=== PATIENT | female | born 1975 | race Caucasian/White ===

== ENCOUNTER 2016-09-23 10:44 | Emergency (ER) | payer OTHER ==
[~2016-09-23] VITALS: Ht 160 cm; Wt 95.3 kg
[~2016-09-23 10:44] MED LIST: ADVAIR 100/501 E1 INH; ADVAIR 250/501 EA INH; ALBUTEROL0.09 MG/A2 IH; ALBUTEROL0.09 MG/AC PO; AMOXICILLIN500 MG PO; ANAPROX DS550 MG PO; ATARAX25 MG PO; ATIVAN1 MG PO; AUGMENTIN 875 M1 TAB PO; AUGMENTIN 875875 MG PO; BACTRIM DS 8001 TA1 PO; BACTROBAN OINT22 GM PO; CLEOCIN150 MG PO; DAYPRO600 M1 PO; DIFLUCAN150 MG PO; FLAGYL500 MG PO; FLEXERIL5 MG PO; FLONASE 0.05% 121 EA NAS; FLONASE ALLERG9.9 ML NAS; FLONASE0.05 MG/AC NAS; LIDEX 0.05% CRE15 GM T; LOMOTIL 0.025 M1 TA1 PO; MEDROL DOSEPAK4 MG PO; MOTRIN800 MG PO; NAPROSYN500 MG PO; NKHM; PEN-VK500 MG PO; PHENERGAN25 M1 PO; PREDNICOT20 MG PO; PREDNISONE10 MG PO; PREDNISONE20 MG PO; PREDNISONE5 MG PO; PRILOSEC20 M1 PO; PRILOSEC20 MG PO; PROAIR RESPICL90 MCG INH; PROVENTIL0.09 MG/AC IH; PROZAC10 M1 PO; PULMICORT INH200 MCG INH; TESSALON PERLE100 M1 PO; TORADOL10 MG PO; TRAMADOL HCL50 MG PO; ULTRAM50 MG PO; VERAMYST27.5 MCG/A NAS; VIBRAMYCIN100 MG PO; VICODIN 5/500 505 MG PO; XOPENEX0.63 MG INH; ZANTAC 150150 MG PO; ZITHROMAX Z PA250 MG PO; ZOFRAN ODT4 MG SL; ZOFRAN4 MG PO; ZYRTEC10 M3 PO; Zofran4 MG PO
[2016-09-23] MEDS ORDERED: PREDNISONE10 MG PO (11:17)
== END 2016-09-23 11:22 | disposition home or self-care (01) ==
LOC: ED 10:44
DX: L25.9 Unspecified contact dermatitis, unspecified cause (principal); Z79.899 Other long term (current) drug therapy

== ENCOUNTER 2016-10-17 17:00 | Emergency (ER) | payer OTHER ==
[~2016-10-17] VITALS: Ht 160 cm; Wt 95.3 kg
[2016-10-17 17:39] LABS: BASO % 0.1 % (0.0-1.0); EOS % 0.5 % (1.0-4.0); HEMATOCRIT 39.7 % (37.0-47.0); LYMPH # 1.6 10*3/uL (1.3-4.4); LYMPH % 20.4 % (27.0-41.0); MEAN CELL VOLUME 83.8 fl (81.0-99.0); MEAN CORPUSCULAR HGB 27.4 pg (27.0-31.0); MEAN CORPUSCULAR HGB CONC 32.7 g/dl (33.0-37.0); MEAN PLATELET VOLUME 10.5 fl (9.6-12.3); MONO # 0.4 10*3/uL (0.1-1.0); MONO % 4.5 % (3.0-9.0); NEUT # 5.7 10*3/uL (2.3-7.9); NEUT % 74.4 % (47.0-73.0); PLATELET COUNT AUTOMATED 224 10*3/uL (130-400); RED BLOOD COUNT 4.74 10*6/uL (4.10-5.10); RED CELL DISTRI WIDTH 14.2 % (0-14.5); WHITE BLOOD COUNT 7.7 10*3/uL (4.8-10.8)
[2016-10-17 18:00] LABS: ALBUMIN 3.7 gm/dl (3.1-4.5); ALKALINE PHOSPHATASE 132 U/L (45-117); BILIRUBIN, TOTAL 0.3 mg/dl (0.2-1.0); BUN 12 mg/dl (7-24); CARBON DIOXIDE 32 mmol/L (21-32); CHLORIDE 103 mmol/L (98-107); EST GLOM FILT AFRICAN AMERICAN > 60 ml/min; GLUCOSE 99 mg/dL (65-99); MAGNESIUM 2.1 mg/dL (1.5-2.1); POTASSIUM 4.3 mmol/L (3.5-5.1); SGOT/AST 21 IU/L (3-35); SGPT/ALT 35 U/L (12-78); SODIUM 138 mmol/L (136-145); TOTAL PROTEIN 7.3 gm/dL (6.4-8.2)
[2016-10-17] MEDS ORDERED: NAPROSYN500 MG PO (18:34)
[2016-10-17] MEDS ORDERED: CYCLOBENZAPRINE10 MG PO (18:34)
== END 2016-10-17 18:52 | disposition home or self-care (01) ==
LOC: ED 17:00
PROVIDERS: Nurse Practitioner Family
DX: M62.838 Other muscle spasm (principal); Z79.899 Other long term (current) drug therapy

== ENCOUNTER 2017-02-03 20:02 | Emergency (ER) | payer OTHER ==
[~2017-02-03] VITALS: Ht 160 cm; Wt 97.5 kg
[~2017-02-03 20:02] MED LIST changes: +CYCLOBENZAPRINE10 MG PO
[2017-02-03] MEDS ORDERED: ATROVENT HFA12.9 GM INH (20:42)
[2017-02-03] MEDS ORDERED: ZITHROMAX250 MG PO (20:42)
[2017-02-03] MEDS ORDERED: PREDNISONE20 M1 PO (20:42)
== END 2017-02-03 23:13 | disposition home or self-care (01) ==
LOC: ED 20:02
DX: J20.9 Acute bronchitis, unspecified (principal); Z90.49 Acquired absence of other specified parts of digestive tract; Z98.51 Tubal ligation status; Z79.899 Other long term (current) drug therapy

== ENCOUNTER 2017-02-09 10:56 | Emergency (ER) | payer OTHER ==
[~2017-02-09] VITALS: Ht 160 cm; Wt 95.3 kg
[~2017-02-09 10:56] MED LIST changes: +ATROVENT HFA12.9 GM INH; +PREDNISONE20 M1 PO; +ZITHROMAX250 MG PO
[2017-02-09] MEDS ORDERED: BENADRYL ALLERG25 M5 PO (12:23)
[2017-02-09] MEDS ORDERED: ZANTAC 150150 MG PO (12:23)
[2017-02-09] MEDS ORDERED: PREDNISONE10 M1 PO (12:23)
== END 2017-02-09 12:29 | disposition home or self-care (01) ==
LOC: ED 10:56
DX: T78.40XA Allergy, unspecified, initial encounter (principal); Z79.899 Other long term (current) drug therapy; X58.XXXA Exposure to other specified factors, initial encounter

== ENCOUNTER → 2017-07-06 | Outpatient (CLI) | payer OTHER ==
[~2017-07-06] MED LIST changes: +BENADRYL ALLERG25 M5 PO; +BREO ELLIPTA 11 EACH INH; +NEXIUM PO; +PREDNISONE10 M1 PO; +ROBITUSSIN DM 105 ML PO; +SINGULAIR10 M1 PO; +ZYRTEC10 MG PO
--- NOTE | ~2017-07-06 | ST ---
[place], [place] EXERCISE STRESS TEST REPORT NAME: ARELY PULLIAM UNIT #: [id number] ROOM: DOCTOR: OPAL BERNARD MD BIRTHDATE: [birth year] DOS: EXERCISE STRESS TEST REASON FOR STRESS TEST: Atypical precordial chest pain. PROCEDURE IN DETAIL: The patient exercised utilizing a full Da protocol for 7 minutes 7 seconds and stopped for fatigue and dyspnea at a heart rate of 155, which represented 86% of her maximum predicted heart rate at a workload of 10.0 METs. She had some chest heaviness during exercise. Her resting electrocardiogram was normal. With exercise, she had 1.[address] segment depression in the inferior and lateral leads. Her resting blood pressure of 110/70 jasbir to 224/98. The Handy treadmill score was 0.6, consistent with a moderate risk for future cardiac events. IMPRESSION: 1. Limited exercise capacity for age. 2. Hypertensive blood pressure response to exercise. 3. Equivocal electrocardiographic response to exercise. 4. Handy treadmill score is 0.6, consistent with intermediate risk for future cardiac events. OPLA BERNARD MD CM:STRESS:EXERCISE STRESS TEST REPORT [id number] OPAL BERNARD MD
== END | disposition home or self-care (01) ==
LOC: CARD 01:39
DX: R07.89 Other chest pain (principal)

== ENCOUNTER 2017-07-09 17:18 | Emergency (ER) | payer OTHER ==
[~2017-07-09] VITALS: Ht 160 cm; Wt 99.8 kg
[~2017-07-09 17:18] MED LIST changes: -ROBITUSSIN DM 105 ML PO
[2017-07-09 17:47] LABS: BASO % 0.6 % (0.0-1.0); EOS % 0.8 % (1.0-4.0); HEMATOCRIT 39.6 % (37.0-47.0); HEMOGLOBIN 13.1 g/dl (12.0-16.0); LYMPH # 1.2 10*3/uL (1.3-4.4); MEAN CELL VOLUME 83.7 fl (81.0-99.0); MEAN CORPUSCULAR HGB 27.7 pg (27.0-31.0); MEAN CORPUSCULAR HGB CONC 33.1 g/dl (33.0-37.0); MEAN PLATELET VOLUME 10.7 fl (9.6-12.3); MONO # 0.5 10*3/uL (0.1-1.0); MONO % 9.3 % (3.0-9.0); NEUT # 3.4 10*3/uL (2.3-7.9); NEUT % 65.3 % (47.0-73.0); PLATELET COUNT AUTOMATED 224 10*3/uL (130-400); RED BLOOD COUNT 4.73 10*6/uL (4.10-5.10); RED CELL DISTRI WIDTH 14.2 % (0-14.5); WHITE BLOOD COUNT 5.2 10*3/uL (4.8-10.8)
[2017-07-09 18:04] LABS: ALBUMIN 3.5 gm/dl (3.1-4.5); ALKALINE PHOSPHATASE 124 U/L (45-117); BUN 13 mg/dl (7-24); CHLORIDE 106 mmol/L (98-107); CREATININE 0.71 mg/dL (0.55-1.02); POTASSIUM 4.2 mmol/L (3.5-5.1); SGOT/AST 20 IU/L (3-35); SGPT/ALT 27 U/L (12-78); SODIUM 140 mmol/L (136-145); TOTAL PROTEIN 7.2 gm/dL (6.4-8.2)
[2017-07-09 18:05] LABS: TROPONIN I < 0.015 ng/ml (<0.045)
[2017-07-09] MEDS ORDERED: PREDNISONE20 M1 PO (19:13)
[2017-07-09] MEDS ORDERED: ROBITUSSIN DM 105 ML PO (19:13)
== END 2017-07-09 19:19 | disposition home or self-care (01) ==
LOC: ED 17:19
PROVIDERS: Nurse Practitioner Family
DX: J45.901 Unspecified asthma with (acute) exacerbation (principal); Z98.51 Tubal ligation status; Z90.49 Acquired absence of other specified parts of digestive tract; Z79.899 Other long term (current) drug therapy

== ENCOUNTER → 2017-08-26 | Outpatient (CLI) | payer OTHER ==
[~2017-08-26] MED LIST changes: +ROBITUSSIN DM 105 ML PO
--- NOTE | ~2017-08-26 | ST ---
[place], [place] EXERCISE STRESS TEST REPORT NAME: ARELY PULLIAM UNIT #: [id number] ROOM: DOCTOR: YAHIR CHAVEZ MD BIRTHDATE: [birth year] DOS: 08/26/2017 EXERCISE NUCLEAR STRESS TEST. ATTENDING PHYSICIAN: Dr. Yahir Chavez PROCEDURE: The patient walked for 7 minutes and 40 seconds on the Da protocol and stopped because of dyspnea and fatigue. She achieved a maximum heart rate of 154, which has represented 86% of maximum predicted heart rate at a workload of 10 mets. There were no changes on the exercise ECG. The patient experienced no chest pain. The Handy treadmill score was 8 consistent with intermediate risk of cardiovascular events. There was an appropriate blood pressure and heart rate response during exercise and recovery. IMPRESSION: The patient has average functional capacity. Isotope was injected 1 minute prior to the completion of exercise. Please see the separate imaging report for further details of the stress test results. Yahir Chavez MD CM:STRESS:EXERCISE STRESS TEST REPORT [id number] YAHIR CHAVEZ MD
== END | disposition home or self-care (01) ==
LOC: CARD 00:32
DX: R07.9 Chest pain, unspecified (principal)

== ENCOUNTER 2017-10-06 20:52 | Emergency (ER) | payer OTHER ==
[~2017-10-06] VITALS: Ht 160 cm; Wt 99.8 kg
[2017-10-06 21:21] LABS: BASO % 0.4 % (0.0-1.0); EOS # 0.1 10*3/uL (0.0-0.4); EOS % 0.9 % (1.0-4.0); HEMATOCRIT 40.1 % (37.0-47.0); HEMOGLOBIN 13.2 g/dl (12.0-16.0); LYMPH # 2.6 10*3/uL (1.3-4.4); LYMPH % 27.5 % (27.0-41.0); MEAN CELL VOLUME 83.9 fl (81.0-99.0); MEAN CORPUSCULAR HGB 27.6 pg (27.0-31.0); MEAN CORPUSCULAR HGB CONC 32.9 g/dl (33.0-37.0); MEAN PLATELET VOLUME 10.9 fl (9.6-12.3); MONO # 0.5 10*3/uL (0.1-1.0); MONO % 5.7 % (3.0-9.0); NEUT # 6.1 10*3/uL (2.3-7.9); NEUT % 65.3 % (47.0-73.0); PLATELET COUNT AUTOMATED 239 10*3/uL (130-400); RED BLOOD COUNT 4.78 10*6/uL (4.10-5.10); WHITE BLOOD COUNT 9.4 10*3/uL (4.8-10.8)
[2017-10-06 21:32] LABS: ACT PARTIAL THROMBO TIME 25.4 SECONDS (20.8-31.5)
[2017-10-06 21:40] LABS: ALBUMIN 3.6 gm/dl (3.1-4.5); ALKALINE PHOSPHATASE 134 U/L (45-117); BUN 8 mg/dl (7-24); CHLORIDE 106 mmol/L (98-107); CREATININE 0.87 mg/dL (0.55-1.02); POTASSIUM 3.3 mmol/L (3.5-5.1); SGOT/AST 17 IU/L (3-35); SGPT/ALT 31 U/L (12-78); SODIUM 141 mmol/L (136-145); TOTAL PROTEIN 7.2 gm/dL (6.4-8.2)
[2017-10-06 21:45] LABS: TROPONIN I < 0.015 ng/ml (<0.045)
[2017-10-06] MEDS ORDERED: NAPROSYN500 MG PO (22:07)
== END 2017-10-06 22:13 | disposition home or self-care (01) ==
LOC: ED 20:52
PROVIDERS: Student in an Organized Health Care Education/Training Program
DX: R07.89 Other chest pain (principal); R42 Dizziness and giddiness; R05 Cough; R11.10 Vomiting, unspecified; K21.9 Gastro-esophageal reflux disease without esophagitis; J45.909 Unspecified asthma, uncomplicated; Z79.899 Other long term (current) drug therapy

== ENCOUNTER 2018-01-12 16:38 | Emergency (ER) | payer OTHER ==
[~2018-01-12] VITALS: Wt 104.3 kg
[2018-01-12 18:16] LABS: BILIRUBIN NEGATIVE (NEGATIVE); BLOOD TRACE-INTACT (NEGATIVE); CLARITY CLEAR (CLEAR); COLOR YELLOW (YELLOW); GLUCOSE NEGATIVE (NEGATIVE); KETONE NEGATIVE (NEGATIVE); LEUKO ESTERASE NEGATIVE (NEGATIVE); NITRITE NEGATIVE (NEGATIVE); UROBILINOGEN 0.2 E.U./dl (0.2-1.0)
[2018-01-12 18:28] LABS: BACTERIA 1+; EPITHELIAL CELLS 16-20; RBC 0-2 rbc/hpf (0-2)
[2018-01-12 19:54] LABS: BASO % 0.3 % (0.0-1.0); EOS # 0.1 10*3/uL (0.0-0.4); EOS % 0.8 % (1.0-4.0); HEMATOCRIT 38.5 % (37.0-47.0); HEMOGLOBIN 12.5 g/dl (12.0-16.0); LYMPH # 2.3 10*3/uL (1.3-4.4); MEAN CORPUSCULAR HGB 27.6 pg (27.0-31.0); MEAN CORPUSCULAR HGB CONC 32.5 g/dl (33.0-37.0); MEAN PLATELET VOLUME 10.9 fl (9.6-12.3); MONO # 0.5 10*3/uL (0.1-1.0); MONO % 5.9 % (3.0-9.0); NEUT # 6.2 10*3/uL (2.3-7.9); NEUT % 67.8 % (47.0-73.0); PLATELET COUNT AUTOMATED 255 10*3/uL (130-400); RED BLOOD COUNT 4.53 10*6/uL (4.10-5.10); WHITE BLOOD COUNT 9.1 10*3/uL (4.8-10.8)
[2018-01-12] MEDS ORDERED: PREDNISONE10 MG PO (20:04)
[2018-01-12] MEDS ORDERED: CYCLOBENZAPRINE5 M3 PO (20:04)
[2018-01-12] MEDS ORDERED: Motrin,Rufen800 MG PO (20:04)
[2018-01-12 20:08] LABS: ALBUMIN 3.5 gm/dl (3.1-4.5); ALKALINE PHOSPHATASE 115 U/L (45-117); BUN 9 mg/dl (7-24); CHLORIDE 108 mmol/L (98-107); POTASSIUM 3.3 mmol/L (3.5-5.1); SGOT/AST 16 IU/L (3-35); SGPT/ALT 30 U/L (12-78); SODIUM 143 mmol/L (136-145); TOTAL PROTEIN 6.9 gm/dL (6.4-8.2)
== END 2018-01-12 21:03 | disposition home or self-care (01) ==
LOC: ED 16:38
PROVIDERS: Nurse Practitioner
DX: M54.5 Low back pain (principal); Z98.51 Tubal ligation status; Z90.49 Acquired absence of other specified parts of digestive tract; Z79.899 Other long term (current) drug therapy

== ENCOUNTER → 2018-03-03 | Outpatient (CLI) | payer SELFPAY ==
[~2018-03-03] MED LIST changes: +AVPAK AZITHROM250 MG PO; +CLARITIN10 MG PO; +CYCLOBENZAPRINE5 M3 PO; +MUCINEX1200 M1 PO; +Motrin,Rufen800 MG PO; +PREDNISONE50 MG PO
== END | disposition home or self-care (01) ==
LOC: RESCLI 13:23
DX: K21.9 Gastro-esophageal reflux disease without esophagitis (principal); J30.89 Other allergic rhinitis; R68.89 Other general symptoms and signs; B34.9 Viral infection, unspecified; E66.9 Obesity, unspecified; J45.30 Mild persistent asthma, uncomplicated; Z79.899 Other long term (current) drug therapy; Z88.8 Allergy status to other drugs, medicaments and biological substances

== ENCOUNTER 2018-03-05 10:54 | Emergency (ER) | payer SELFPAY ==
[~2018-03-05] VITALS: Ht 160 cm; Wt 102.1 kg
[~2018-03-05 10:54] MED LIST changes: -AVPAK AZITHROM250 MG PO; -CLARITIN10 MG PO; -MUCINEX1200 M1 PO; -PREDNISONE50 MG PO
[2018-03-05] MEDS ORDERED: CLARITIN10 MG PO (11:09)
[2018-03-05 11:53] LABS: BASO % 0.3 % (0.0-1.0); EOS # 0.1 10*3/uL (0.0-0.4); EOS % 0.8 % (1.0-4.0); HEMATOCRIT 40.1 % (37.0-47.0); HEMOGLOBIN 13.2 g/dl (12.0-16.0); LYMPH # 1.7 10*3/uL (1.3-4.4); LYMPH % 25.2 % (27.0-41.0); MEAN CELL VOLUME 83.2 fl (81.0-99.0); MEAN CORPUSCULAR HGB 27.4 pg (27.0-31.0); MEAN CORPUSCULAR HGB CONC 32.9 g/dl (33.0-37.0); MEAN PLATELET VOLUME 10.6 fl (9.6-12.3); MONO # 0.3 10*3/uL (0.1-1.0); MONO % 5.2 % (3.0-9.0); NEUT # 4.5 10*3/uL (2.3-7.9); NEUT % 68.3 % (47.0-73.0); PLATELET COUNT AUTOMATED 248 10*3/uL (130-400); RED BLOOD COUNT 4.82 10*6/uL (4.10-5.10); RED CELL DISTRI WIDTH 13.8 % (0-14.5); WHITE BLOOD COUNT 6.6 10*3/uL (4.8-10.8)
[2018-03-05 12:03] LABS: ACT PARTIAL THROMBO TIME 25.5 SECONDS (20.8-31.5)
[2018-03-05 12:10] LABS: ALBUMIN 3.4 gm/dl (3.1-4.5); ALKALINE PHOSPHATASE 125 U/L (45-117); BUN 10 mg/dl (7-24); CHLORIDE 109 mmol/L (98-107); CREATININE 0.76 mg/dL (0.55-1.02); POTASSIUM 3.8 mmol/L (3.5-5.1); SGOT/AST 13 IU/L (3-35); SGPT/ALT 26 U/L (12-78); SODIUM 141 mmol/L (136-145); TOTAL PROTEIN 6.9 gm/dL (6.4-8.2)
[2018-03-05] MEDS ORDERED: AVPAK AZITHROM250 MG PO (13:01)
[2018-03-05] MEDS ORDERED: PREDNISONE50 MG PO (13:01)
[2018-03-05] MEDS ORDERED: MUCINEX1200 M1 PO (13:01)
== END 2018-03-05 13:06 | disposition home or self-care (01) ==
LOC: ED 10:54
PROVIDERS: Nurse Practitioner Family
DX: J45.901 Unspecified asthma with (acute) exacerbation (principal); J06.9 Acute upper respiratory infection, unspecified; Z79.899 Other long term (current) drug therapy

== ENCOUNTER → 2018-04-06 | Outpatient (CLI) | payer SELFPAY ==
[~2018-04-06] MED LIST changes: +AVPAK AZITHROM250 MG PO; +CLARITIN10 MG PO; +MUCINEX1200 M1 PO; +PREDNISONE50 MG PO
== END | disposition home or self-care (01) ==
LOC: RESCLI 10:11
PROVIDERS: Student in an Organized Health Care Education/Training Program
DX: K21.9 Gastro-esophageal reflux disease without esophagitis (principal); R68.89 Other general symptoms and signs; J02.9 Acute pharyngitis, unspecified; J32.9 Chronic sinusitis, unspecified; J45.30 Mild persistent asthma, uncomplicated; E66.9 Obesity, unspecified; R05 Cough; Z79.899 Other long term (current) drug therapy; Z88.8 Allergy status to other drugs, medicaments and biological substances

== ENCOUNTER 2018-08-19 14:56 | Inpatient (IN) | payer SELFPAY ==
[~2018-08-19] VITALS: Ht 160 cm; Wt 103.1 kg
--- NOTE | ~2018-08-19 | EKG ---
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
--- NOTE | ~2018-08-19 | EKG ---
[place], [place] ELECTROCARDIOGRAM REPORT NAME: ARELY PULLIAM UNIT #: [id number] ROOM: 402 DOCTOR: ANT DRAFT REPORT BIRTHDATE: [address] 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[place] : 1975 Requested By: ADOLFO GARLAND Order Number: [id number] Reading MD: Janey Chavez MD Measurements Intervals [place] Rate: 109 P: 54 DC: 157 QRS: 32 QRSD: 94 T: 14 QT: 367 QTc: 495 Interpretive Statements Sinus tachycardia Minimal ST depression, lateral leads Borderline prolonged QT interval Baseline wander in lead(s) V4 Compared to ECG 08/19/2018 18:00:47 ST (T wave) deviation now present T-wave abnormality no longer present Electronically Signed On 08-20-2018 15:56:46 PST by Janey Chavez MD CM:EKGRPT:ELECTROCARDIOGRAM REPORT [id number] ADOLFO CAIN DRAFT REPORT ADOLFO GARLAND M.D.
--- NOTE | ~2018-08-19 | EKG ---
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
--- NOTE | ~2018-08-19 | EKG ---
[place], [place] ELECTROCARDIOGRAM REPORT NAME: ARELY PULLIAM UNIT #: [id number] ROOM: 402 DOCTOR: ANT DRAFT REPORT BIRTHDATE: [birth year] [facility] Test Date: 2018-08-19 Test Time: 14:57:26 Pat Name: ARELY PULLIAM Department: Room: 402 Gender: F [employer] Lead: : 1975 Requested By: ADOLFO GARLAND Order Number: [id number] Reading MD: Janey Chavez MD Measurements Intervals [place] Rate: 99 P: 26 VT: 154 QRS: 30 QRSD: 95 T: 10 QT: 360 QTc: 462 Interpretive Statements Sinus rhythm RSR' in V1 or V2, right VCD or RVH Borderline T abnormalities, anterior leads Baseline wander in lead(s) V1,V2 Electronically Signed On 08-19-2018 15:35:43 PST by Janey Chavez MD CM:EKGRPT:ELECTROCARDIOGRAM REPORT [id number] ADOLFO CAIN DRAFT REPORT ADOLFO GARLAND M.D.
[2018-08-19 14:57] VITALS: BP 144/96
[2018-08-19 15:47] LABS: BASO % 0.3 % (0.0-1.0); EOS # 0.1 10*3/uL (0.0-0.4); EOS % 0.6 % (1.0-4.0); HEMATOCRIT 37.9 % (37.0-47.0); HEMOGLOBIN 12.4 g/dl (12.0-16.0); LYMPH % 25.7 % (27.0-41.0); MEAN CELL VOLUME 83.3 fl (81.0-99.0); MEAN CORPUSCULAR HGB 27.3 pg (27.0-31.0); MEAN CORPUSCULAR HGB CONC 32.7 g/dl (33.0-37.0); MEAN PLATELET VOLUME 10.4 fl (9.6-12.3); MONO # 0.4 10*3/uL (0.1-1.0); MONO % 5.4 % (3.0-9.0); NEUT # 5.3 10*3/uL (2.3-7.9); NEUT % 67.7 % (47.0-73.0); PLATELET COUNT AUTOMATED 237 10*3/uL (130-400); RED BLOOD COUNT 4.55 10*6/uL (4.10-5.10); RED CELL DISTRI WIDTH 14.6 % (0-14.5); WHITE BLOOD COUNT 7.8 10*3/uL (4.8-10.8)
[2018-08-19 15:58] LABS: ACT PARTIAL THROMBO TIME 25.8 SECONDS (20.8-31.5)
[2018-08-19 16:18] LABS: ALBUMIN 3.4 gm/dl (3.1-4.5); ALKALINE PHOSPHATASE 142 U/L (45-117); BUN 11 mg/dl (7-24); CHLORIDE 106 mmol/L (98-107); CREATININE 0.82 mg/dL (0.55-1.02); POTASSIUM 3.4 mmol/L (3.5-5.1); SGOT/AST 15 IU/L (3-35); SGPT/ALT 29 U/L (12-78); SODIUM 141 mmol/L (136-145)
[2018-08-19 16:23] LABS: TROPONIN I < 0.015 ng/ml (<0.045)
[2018-08-19 16:38] VITALS: BP 144/84
[2018-08-19 17:51] VITALS: BP 136/75
[2018-08-19 18:00] VITALS: BP 135/87
[2018-08-19 20:00] VITALS: BP 129/66
[2018-08-20] VITALS: BP 116/53
[2018-08-20 06:37] LABS: HEMATOCRIT 38.2 % (37.0-47.0); HEMOGLOBIN 12.3 g/dl (12.0-16.0); MEAN CELL VOLUME 84.7 fl (81.0-99.0); MEAN CORPUSCULAR HGB 27.3 pg (27.0-31.0); MEAN CORPUSCULAR HGB CONC 32.2 g/dl (33.0-37.0); MEAN PLATELET VOLUME 11.2 fl (9.6-12.3); PLATELET COUNT AUTOMATED 257 10*3/uL (130-400); RED BLOOD COUNT 4.51 10*6/uL (4.10-5.10); RED CELL DISTRI WIDTH 14.8 % (0-14.5)
[2018-08-20 06:57] LABS: BUN 11 mg/dl (7-24); CHLORIDE 111 mmol/L (98-107); CREATININE 0.74 mg/dL (0.55-1.02); PHOSPHOROUS 2.6 mg/dL (2.5-4.9); POTASSIUM 4.1 mmol/L (3.5-5.1); SODIUM 142 mmol/L (136-145)
[2018-08-20 06:58] LABS: ALBUMIN 3.1 gm/dl (3.1-4.5); ALKALINE PHOSPHATASE 135 U/L (45-117); CHOLESTEROL 199 mg/dL (<200); HDL CHOLESTEROL 54 mg/dl (40-60); LDL CHOLESTEROL 132 mg/dL (9-159); SGOT/AST 12 IU/L (3-35); SGPT/ALT 28 U/L (12-78); TRIGLYCERIDES 64 mg/dl (<150); VLDL CHOLESTEROL 13 mg/dL (6-40)
[2018-08-20 06:59] LABS: FREE T4 0.92 ng/dl (0.76-1.46)
[2018-08-20 07:04] LABS: THYROID STIM HORMONE (HS) 0.681 uIU/ml (0.358-4.75)
[2018-08-20 07:06] LABS: ACT PARTIAL THROMBO TIME 24.8 SECONDS (20.8-31.5)
[2018-08-20 07:33] LABS: VITAMIN D, 25-HYDROXY 17.9 ng/mL (30-100)
[2018-08-20 08:07] LABS: PLATELET SUFFICIENCY NORMAL (NORMAL); TOTAL CELLS COUNTED 100 #CELLS
[2018-08-20 08:30] VITALS: BP 124/72
[2018-08-20 12:00] VITALS: BP 123/70
[2018-08-20 16:00] VITALS: BP 133/74
[2018-08-20 20:00] VITALS: BP 102/62
[2018-08-21 01:13] VITALS: BP 110/60
[2018-08-21 07:07] LABS: HEMATOCRIT 39.4 % (37.0-47.0); HEMOGLOBIN 12.5 g/dl (12.0-16.0); MEAN CELL VOLUME 85.7 fl (81.0-99.0); MEAN CORPUSCULAR HGB 27.2 pg (27.0-31.0); MEAN CORPUSCULAR HGB CONC 31.7 g/dl (33.0-37.0); MEAN PLATELET VOLUME 11.1 fl (9.6-12.3); PLATELET COUNT AUTOMATED 262 10*3/uL (130-400); RED CELL DISTRI WIDTH 15.1 % (0-14.5)
[2018-08-21 07:29] LABS: BUN 16 mg/dl (7-24); CHLORIDE 104 mmol/L (98-107); CREATININE 0.76 mg/dL (0.55-1.02); POTASSIUM 4.5 mmol/L (3.5-5.1); SODIUM 138 mmol/L (136-145)
[2018-08-21 07:56] LABS: PLATELET SUFFICIENCY NORMAL (NORMAL); TOTAL CELLS COUNTED 100 #CELLS
[2018-08-21 08:00] VITALS: BP 112/64
[2018-08-21 12:00] VITALS: BP 122/78
[2018-08-21 16:00] VITALS: BP 131/53
[2018-08-21 20:00] VITALS: BP 118/63
[2018-08-22] VITALS: BP 100/50
[2018-08-22 06:05] LABS: BASO % 0.1 % (0.0-1.0); EOS % 0.1 % (1.0-4.0); HEMATOCRIT 37.1 % (37.0-47.0); HEMOGLOBIN 11.6 g/dl (12.0-16.0); LYMPH # 2.4 10*3/uL (1.3-4.4); LYMPH % 23.6 % (27.0-41.0); MEAN CELL VOLUME 86.7 fl (81.0-99.0); MEAN CORPUSCULAR HGB 27.1 pg (27.0-31.0); MEAN CORPUSCULAR HGB CONC 31.3 g/dl (33.0-37.0); MONO # 0.6 10*3/uL (0.1-1.0); MONO % 5.9 % (3.0-9.0); NEUT % 69.9 % (47.0-73.0); PLATELET COUNT AUTOMATED 230 10*3/uL (130-400); RED BLOOD COUNT 4.28 10*6/uL (4.10-5.10); RED CELL DISTRI WIDTH 15.3 % (0-14.5)
[2018-08-22 06:17] LABS: BUN 24 mg/dl (7-24); CHLORIDE 107 mmol/L (98-107); CREATININE 0.74 mg/dL (0.55-1.02); POTASSIUM 4.1 mmol/L (3.5-5.1); SODIUM 140 mmol/L (136-145)
[2018-08-22 08:45] VITALS: BP 120/86
[2018-08-22 12:00] VITALS: BP 139/83
[2018-08-22 13:30] VITALS: BP 148/83
[2018-08-22] MEDS ORDERED: TOPROL XL50 M1 PO (14:52)
[2018-08-22] MEDS ORDERED: MEDROL DOSEPAK4 MG PO (14:52)
== END 2018-08-22 16:00 | disposition home or self-care (01) | DRG 313 ==
LOC: ED 14:56 → EDHOLD 16:58 → 4E 17:25
PROVIDERS: Emergency Medicine; Family Medicine; Internal Medicine; ADMIT Internal Medicine
PROC: 3E073KZ Introduction of Other Diagnostic Substance into Coronary Artery, Percutaneous Approach (ICD-10-PCS; principal; 2018-08-20)
PROC: 4A02XM4 Measurement of Cardiac Total Activity, External Approach (ICD-10-PCS; principal; 2018-08-20)
DX: R07.9 Chest pain, unspecified (principal); E87.6 Hypokalemia; R00.0 Tachycardia, unspecified; K21.9 Gastro-esophageal reflux disease without esophagitis; J06.9 Acute upper respiratory infection, unspecified; D72.810 Lymphocytopenia; R73.9 Hyperglycemia, unspecified; J45.909 Unspecified asthma, uncomplicated; Z82.49 Family history of ischemic heart disease and other diseases of the circulatory system; Z90.49 Acquired absence of other specified parts of digestive tract; Z98.51 Tubal ligation status; Z79.899 Other long term (current) drug therapy

== ENCOUNTER → 2019-01-14 | Outpatient (CLI) | payer SELFPAY ==
[~2019-01-14] MED LIST changes: +TOPROL XL50 M1 PO
== END | disposition home or self-care (01) ==
LOC: RESCLI 00:10
DX: I10 Essential (primary) hypertension (principal); R00.0 Tachycardia, unspecified; G44.52 New daily persistent headache (NDPH); J45.20 Mild intermittent asthma, uncomplicated; R60.0 Localized edema; Z91.09 Other allergy status, other than to drugs and biological substances; Z79.899 Other long term (current) drug therapy

== ENCOUNTER 2019-05-02 18:10 | Emergency (ER) | payer SELFPAY ==
[~2019-05-02] VITALS: Ht 152.4 cm; Wt 99.8 kg
[2019-05-02] MEDS ORDERED: TESSALON PERLE100 M1 PO (20:51)
[2019-05-02] MEDS ORDERED: PREDNISONE20 M1 PO (20:51)
[2019-05-02] MEDS ORDERED: PROVENTIL HFA6.7 GM INH (20:51)
== END 2019-05-02 20:51 | disposition home or self-care (01) ==
LOC: ED 18:10
DX: J45.909 Unspecified asthma, uncomplicated (principal); I10 Essential (primary) hypertension; K21.9 Gastro-esophageal reflux disease without esophagitis; Z91.030 Bee allergy status; Z91.048 Other nonmedicinal substance allergy status; Z79.899 Other long term (current) drug therapy

== ENCOUNTER → 2019-06-17 | Outpatient (CLI) | payer SELFPAY ==
[~2019-06-17] MED LIST changes: +PROVENTIL HFA6.7 GM INH; +TAMIFLU 75MG CA75 MG PO
== END | disposition home or self-care (01) ==
LOC: RESCLI 01:37
DX: J18.9 Pneumonia, unspecified organism (principal); I10 Essential (primary) hypertension; K21.9 Gastro-esophageal reflux disease without esophagitis; J45.20 Mild intermittent asthma, uncomplicated; Z79.899 Other long term (current) drug therapy; Z88.8 Allergy status to other drugs, medicaments and biological substances

== ENCOUNTER 2019-06-18 08:16 | Emergency (ER) | payer SELFPAY ==
[~2019-06-18] VITALS: Ht 160 cm; Wt 104.8 kg
[~2019-06-18 08:16] MED LIST changes: -TAMIFLU 75MG CA75 MG PO
[2019-06-18] MEDS ORDERED: TAMIFLU 75MG CA75 MG PO (09:15)
[2019-06-18] MEDS ORDERED: ZOFRAN4 MG PO (09:15)
== END 2019-06-18 09:43 | disposition home or self-care (01) ==
LOC: ED 08:16
DX: J10.1 Influenza due to other identified influenza virus with other respiratory manifestations (principal); R11.2 Nausea with vomiting, unspecified; R42 Dizziness and giddiness; K21.9 Gastro-esophageal reflux disease without esophagitis; I10 Essential (primary) hypertension; J45.909 Unspecified asthma, uncomplicated; Z79.899 Other long term (current) drug therapy

== ENCOUNTER 2019-06-19 08:46 | Emergency (ER) | payer SELFPAY ==
[~2019-06-19] VITALS: Ht 160 cm; Wt 104.8 kg
[~2019-06-19 08:46] MED LIST changes: +TAMIFLU 75MG CA75 MG PO
[2019-06-19 09:30] LABS: BASO % 0.3 % (0.0-1.0); HEMATOCRIT 37.9 % (37.0-47.0); HEMOGLOBIN 12.5 g/dl (12.0-16.0); LYMPH # 0.5 10*3/uL (1.3-4.4); MEAN CELL VOLUME 81.5 fl (81.0-99.0); MEAN CORPUSCULAR HGB 26.9 pg (27.0-31.0); MEAN PLATELET VOLUME 10.9 fl (9.6-12.3); MONO # 0.4 10*3/uL (0.1-1.0); MONO % 12.8 % (3.0-9.0); NEUT # 2.4 10*3/uL (2.3-7.9); NEUT % 72.6 % (47.0-73.0); PLATELET COUNT AUTOMATED 189 10*3/uL (130-400); RED BLOOD COUNT 4.65 10*6/uL (4.10-5.10); RED CELL DISTRI WIDTH 14.7 % (0-14.5); WHITE BLOOD COUNT 3.3 10*3/uL (4.8-10.8)
[2019-06-19 09:49] LABS: ALBUMIN 3.3 gm/dl (3.1-4.5); ALKALINE PHOSPHATASE 114 U/L (45-117); BUN 9 mg/dl (7-24); CHLORIDE 106 mmol/L (98-107); CREATININE 0.95 mg/dL (0.55-1.02); POTASSIUM 3.5 mmol/L (3.5-5.1); SGOT/AST 31 IU/L (3-35); SGPT/ALT 36 U/L (12-78); SODIUM 138 mmol/L (136-145)
== END 2019-06-19 11:52 | disposition home or self-care (01) ==
LOC: ED 08:46
PROVIDERS: Family Medicine
DX: J10.1 Influenza due to other identified influenza virus with other respiratory manifestations (principal); E86.0 Dehydration; K92.0 Hematemesis; J45.909 Unspecified asthma, uncomplicated; I10 Essential (primary) hypertension; K21.9 Gastro-esophageal reflux disease without esophagitis; Z91.048 Other nonmedicinal substance allergy status; Z79.899 Other long term (current) drug therapy; Z90.49 Acquired absence of other specified parts of digestive tract

== ENCOUNTER → 2019-12-13 | Outpatient (CLI) | payer SELFPAY ==
[2019-12-13 16:02] LABS: CHOLESTEROL 200 mg/dL (<200); HDL CHOLESTEROL 46 mg/dl (40-60); LDL CHOLESTEROL 122 mg/dL (9-159); TRIGLYCERIDES 158 mg/dl (<150); VLDL CHOLESTEROL 32 mg/dL (6-40)
== END | disposition home or self-care (01) ==
LOC: LAB 15:35
PROVIDERS: Student in an Organized Health Care Education/Training Program
DX: I10 Essential (primary) hypertension (principal)

== ENCOUNTER 2019-12-21 09:21 | Observation (INO) | payer SELFPAY ==
[~2019-12-21] VITALS: Ht 160 cm; Wt 105.7 kg
[2019-12-21 09:30] VITALS: BP 133/70
[2019-12-21 10:00] LABS: BASO % 0.4 % (0.0-1.0); EOS # 0.1 10*3/uL (0.0-0.4); EOS % 0.6 % (1.0-4.0); LYMPH # 1.9 10*3/uL (1.3-4.4); LYMPH % 22.4 % (27.0-41.0); MEAN CELL VOLUME 81.3 fl (81.0-99.0); MEAN CORPUSCULAR HGB 26.3 pg (27.0-31.0); MEAN CORPUSCULAR HGB CONC 32.3 g/dl (33.0-37.0); MEAN PLATELET VOLUME 11.2 fl (9.6-12.3); MONO # 0.4 10*3/uL (0.1-1.0); MONO % 4.3 % (3.0-9.0); NEUT % 71.8 % (47.0-73.0); PLATELET COUNT AUTOMATED 281 10*3/uL (130-400); WHITE BLOOD COUNT 8.4 10*3/uL (4.8-10.8)
[2019-12-21 10:13] LABS: ACT PARTIAL THROMBO TIME 28.5 SECONDS (20.0-32.1)
[2019-12-21 10:17] LABS: ALBUMIN 3.4 gm/dl (3.1-4.5); BUN 8 mg/dl (7-24); CHLORIDE 107 mmol/L (98-107); POTASSIUM 3.4 mmol/L (3.5-5.1); SGOT/AST 22 IU/L (3-35); SGPT/ALT 34 U/L (12-78); SODIUM 139 mmol/L (136-145)
[2019-12-21 10:20] LABS: ALKALINE PHOSPHATASE 125 U/L (45-117)
[2019-12-21 10:21] LABS: TROPONIN I < 0.015 ng/ml (<0.045)
--- NOTE | 2019-12-21 10:26 | NUR ---
PT STILL CHEST PAIN RADIATES TO BACK,2MG MORPHINE ADMINISTERED AGAIN
[2019-12-21 10:27] VITALS: BP 112/64
[2019-12-21 10:40] VITALS: BP 112/65
--- NOTE | 2019-12-21 11:34 | NUR ---
A 44, admitted to , under the services of ALEJANDRO Nichole DO with a diagnosis of CHEST PAIN, RULE OUT RI. Chief complaint is PAIN MIDSTERNAL THAT RADIATES TO BACK, STARTED AT 0100. Patient arrived via bed from [place]. Monitor applied. Initial assessment completed. Vital signs taken and recorded. ALEJANDRO NICHOLE DO notified of admission to the unit. Orders received. See assessment for past medical history, medications and allergies. Patient and/or family oriented to unit. [facility] visitation policy reviewed. Clothing/patient valuable form completed. LALITA PEÑA
[2019-12-21 11:55] VITALS: BP 130/82
[2019-12-21] MEDS ORDERED: HYDROCHLOROTH12.5 M2 PO (13:14)
[2019-12-21] MEDS ORDERED: TOPROL XL50 M1 PO (13:15)
[2019-12-21] MEDS ORDERED: ADVAIR 250/501 EA INH (13:16)
[2019-12-21] MEDS ORDERED: PRINIVIL10 MG PO (13:17)
--- NOTE | 2019-12-21 13:19 | NUR ---
MED REC UPDATED, DR YOUNG CALLED AND NOTIFIED.
--- NOTE | 2019-12-21 13:37 | NUR ---
PT REQUESTED AND WAS MEIDCATED WITH NORCO FOR C/P PAIN AND ZOFRAN IV FOR C/O NAUSEA. CALL LIGHT IN REACH. WILL MONITOR
--- NOTE | 2019-12-21 14:30 | NUR ---
MEDICATION EFFECTIVE PER PT. WILL MONITOR
[2019-12-21 16:00] VITALS: BP 126/76
--- NOTE | 2019-12-21 17:11 | NUR ---
PT REQUESTED AND WAS MEDICATED WITH MORPHINE IV FOR C/O CHEST PAIN. DR YOUNG NOTIFIED. EKG ORDERED AND HE CAME TO SEE THE PATIENT. WILL MONITOR
--- NOTE | 2019-12-21 17:50 | NUR ---
DR FLOREZ'S ANSWERING SERVICE NOTIFIED OF CONSULT.
--- NOTE | 2019-12-21 17:55 | NUR ---
MORPHINE NOT REALLY EFFECTIVE PER PT. WILL MONITOR
--- NOTE | 2019-12-21 18:13 | NUR ---
GI COCKTAIL GIVEN, THEN PT HAD LARGE EMESIS. DR YOUNG NOTIFIED.
--- NOTE | 2019-12-21 18:30 | NUR ---
PHENEGRAN GIVEN PER ORDERS. WILL MONITOR
[2019-12-21 20:00] VITALS: BP 116/72; BP 126/62
--- NOTE | 2019-12-21 21:24 | NUR ---
MORPHINE GIVEN PER PATIENT REQUEST FOR COMPLAINTS OF "EXCRUCIATING" BACK PAIN FOLLOWED BY SOME CHEST PAIN RATED 8/10. WILL ASSESS EFFECTIVENESS.
--- NOTE | 2019-12-21 22:20 | NUR ---
MORPHINE EFFECTIVE PER PATIENT. PAIN RATED 4/10. WILL ASSESS EFFECTIVENESS.
[2019-12-22] VITALS: BP 124/72
--- NOTE | 2019-12-22 01:19 | NUR ---
PATIENT RESTING QUIETLY IN BED. NO SIGNS OR SYMPTOMS OF DISCOMFORT NOTED. EYES CLOSED. CALL LIGHT IN REACH. WILL CONTINUE TO MONITOR.
[2019-12-22 06:53] LABS: BASO % 0.4 % (0.0-1.0); EOS # 0.1 10*3/uL (0.0-0.4); EOS % 0.9 % (1.0-4.0); HEMATOCRIT 39.1 % (37.0-47.0); LYMPH # 1.5 10*3/uL (1.3-4.4); LYMPH % 21.9 % (27.0-41.0); MEAN CORPUSCULAR HGB 26.1 pg (27.0-31.0); MEAN CORPUSCULAR HGB CONC 31.5 g/dl (33.0-37.0); MEAN PLATELET VOLUME 10.8 fl (9.6-12.3); MONO # 0.4 10*3/uL (0.1-1.0); MONO % 5.3 % (3.0-9.0); NEUT # 4.9 10*3/uL (2.3-7.9); NEUT % 71.4 % (47.0-73.0); PLATELET COUNT AUTOMATED 266 10*3/uL (130-400); RED BLOOD COUNT 4.71 10*6/uL (4.10-5.10); RED CELL DISTRI WIDTH 15.4 % (0-14.5); WHITE BLOOD COUNT 6.9 10*3/uL (4.8-10.8)
[2019-12-22 07:15] LABS: ALBUMIN 3.3 gm/dl (3.1-4.5); BUN 10 mg/dl (7-24); CHLORIDE 105 mmol/L (98-107); CREATININE 0.81 mg/dL (0.55-1.02); POTASSIUM 3.8 mmol/L (3.5-5.1); SGOT/AST 86 IU/L (3-35); SGPT/ALT 126 U/L (12-78); SODIUM 138 mmol/L (136-145)
[2019-12-22 07:24] LABS: ALKALINE PHOSPHATASE 147 U/L (45-117)
--- NOTE | 2019-12-22 08:13 | NUR ---
PT GIVEN MORPHINE AT THIS TIME FOR C/O PAIN TO ABDOMINAL PAIN. WILL MONITOR FOR EFFECTIVENESS. CALL LIGHT IN REACH.
--- NOTE | 2019-12-22 09:13 | NUR ---
MORPHINE EFFECTIVE PER PT.
--- NOTE | 2019-12-22 10:40 | NUR ---
PT DOWN FOR STRESS TEST AT THIS TIME.
--- NOTE | 2019-12-22 11:12 | NUR ---
INFORMED SIGNED CONSENT OBTAINED FOR LEXISCAN STRESS TEST (TEST SWITCHED PER DR SHEN, PT UNABLE TO WALK) RESTING EKG NSR HR 81 BP 108/70. PULSE OX 96% LUNGS CLEAR. PT COMPLETED ONE MINUTE OF A LEXISCAN PROTOCOL WITH PT RECEIVING 0.4MG IV OVER 10 SECONDS. NO ARRHYTMIAS OR ST CHANGES NOTED. PT C/O NAUSE AND CHEST DISCOMFORT WITH INJECTION. LAST RECOVERY HR OF 95 BP 108/68. PT IN STABLE CONDITION, AWAITING NUCLEAR IMAGES.
[2019-12-22 12:00] VITALS: BP 122/76
--- NOTE | 2019-12-22 12:01 | NUR ---
Glue Spreading Machine Operator in to talk to patient. Patient states lives at HOME with . There are NO steps in the home. Physician: [facility]acy: [facility] [place] [facility]: NONE Patient's level of ADLs: INDEPENDENT Patient has working utilities: YES DME: NONE Follow-up physician's appointment after d/c: WILL BE MADE BY HOSPITALIST NURSE DIRECTOR ON DISCHARGE Does patient want to access PORTAL?: NO Discharge plan PT LIVES AT HOME WITH AND IS INDEPENDENT IN HER CARE. DENIES SHE WILL HAVE ANY NEEDS ON DISCHARGE. PLANS TO RETURN HOME WHEN MEDICALLY STABLE. WILL CONTINUE TO FOLLOW. STATES SHE WILL HAVE A RIDE HOME.. KAITLIN AMEZQUITA
--- NOTE | 2019-12-22 12:25 | NUR ---
DR WILDE NOTIFIED OF CONSULT. PHYSICIAN STATES THAT HE WILL MOST LIKELY SEE PATIENT IN THE MORNING.
--- NOTE | 2019-12-22 13:28 | NUR ---
PT GIVEN MORPHINE 2 MG FOR C/O ABDOMINAL PAIN. WILL MONITOR FOR EFFECTIVENESS. CALL LIGHT IN REACH.
--- NOTE | 2019-12-22 14:28 | NUR ---
MORPHINE EFFECTIVE PER PT.
[2019-12-22 16:00] VITALS: BP 112/68
--- NOTE | 2019-12-22 18:24 | NUR ---
PT GIVEN MORPHINE AT THIS TIME FOR C/O ABDOMINAL PAIN. WILL MONITOR FOR EFFECTIVENESS. CALL LIGHT IN REACH.
--- NOTE | 2019-12-22 19:28 | NUR ---
24 HR CHART CHECK COMPLETE.
[2019-12-22 20:00] VITALS: BP 111/63
[2019-12-23] VITALS: BP 102/54
[2019-12-23 06:34] LABS: BASO % 0.4 % (0.0-1.0); EOS # 0.1 10*3/uL (0.0-0.4); EOS % 1.4 % (1.0-4.0); LYMPH % 28.5 % (27.0-41.0); MEAN CELL VOLUME 83.2 fl (81.0-99.0); MEAN CORPUSCULAR HGB CONC 31.3 g/dl (33.0-37.0); MEAN PLATELET VOLUME 10.7 fl (9.6-12.3); MONO # 0.4 10*3/uL (0.1-1.0); MONO % 5.2 % (3.0-9.0); NEUT # 4.5 10*3/uL (2.3-7.9); NEUT % 64.2 % (47.0-73.0); PLATELET COUNT AUTOMATED 287 10*3/uL (130-400); RED BLOOD COUNT 4.57 10*6/uL (4.10-5.10); RED CELL DISTRI WIDTH 15.6 % (0-14.5); WHITE BLOOD COUNT 7.1 10*3/uL (4.8-10.8)
[2019-12-23 06:57] LABS: ALBUMIN 3.1 gm/dl (3.1-4.5); ALKALINE PHOSPHATASE 138 U/L (45-117); BUN 10 mg/dl (7-24); CHLORIDE 103 mmol/L (98-107); CREATININE 0.82 mg/dL (0.55-1.02); POTASSIUM 4.1 mmol/L (3.5-5.1); SGOT/AST 52 IU/L (3-35); SGPT/ALT 108 U/L (12-78); SODIUM 138 mmol/L (136-145); TOTAL PROTEIN 6.8 gm/dL (6.4-8.2)
--- NOTE | 2019-12-23 08:44 | NUR ---
PT GIVEN MORPHINE AT THIS TIME FOR C/O ABDOMINAL PAIN/CHEST PAIN. WILL MONITOR FOR EFFECTIVENESS. CALL LIGHT IN REACH.
--- NOTE | 2019-12-23 09:44 | NUR ---
MORPHINE EFFECTIVE PER PT.
[2019-12-23 12:00] VITALS: BP 119/61
--- NOTE | 2019-12-23 12:00 | NUR ---
PT RESTING IN BED AT THIS TIME. NO S/S OF DISTRESS NOTED. NO COMPLAINTS VOICED. RESPIRATIONS EASY AND UNLABORED. CALL LIGHT IN REACH.
--- NOTE | 2019-12-23 13:00 | NUR ---
PT CONTINUES TO DENY NEEDS ON DISCHARGE. PLANS TO RETURN HOME WHEN MEDICALLY STABLE. WILL CONTINUE TO FOLLOW.
[2019-12-23] MEDS ORDERED: PRILOSEC20 M1 PO (15:04)
[2019-12-23] MEDS ORDERED: VITAMIN D250 MC1 PO (15:04)
[2019-12-23 16:00] VITALS: BP 115/81
--- NOTE | 2019-12-23 16:25 | NUR ---
Discharge instructions reviewed with patient/family. Patient receptive and verbalizes understanding. Follow-up care arranged. Written instructions given to patient/family. KARAN COLEMAN
== END 2019-12-23 16:25 | disposition home or self-care (01) ==
LOC: ED 09:21 → EDHOLD 10:40 → 5E 11:06
PROVIDERS: Emergency Medicine; Student in an Organized Health Care Education/Training Program; ADMIT Internal Medicine
DX: R07.89 Other chest pain (principal); K21.9 Gastro-esophageal reflux disease without esophagitis; E87.6 Hypokalemia; I49.8 Other specified cardiac arrhythmias; E83.41 Hypermagnesemia; R73.03 Prediabetes; R00.0 Tachycardia, unspecified; K76.0 Fatty (change of) liver, not elsewhere classified; E55.9 Vitamin D deficiency, unspecified

== ENCOUNTER → 2019-12-27 | Outpatient (CLI) | payer SELFPAY ==
[~2019-12-27] MED LIST changes: +HYDROCHLOROTH12.5 M2 PO; +PRINIVIL10 MG PO; +VITAMIN D250 MC1 PO
[2019-12-27 11:04] LABS: ALBUMIN 3.5 gm/dl (3.1-4.5); ALKALINE PHOSPHATASE 137 U/L (45-117); BUN 10 mg/dl (7-24); CHLORIDE 106 mmol/L (98-107); CREATININE 0.86 mg/dL (0.55-1.02); IRON 44 ug/dL (50-170); POTASSIUM 4.2 mmol/L (3.5-5.1); SGOT/AST 19 IU/L (3-35); SGPT/ALT 49 U/L (12-78); SODIUM 138 mmol/L (136-145); TOTAL IRON BINDING CAPACITY 362 ug/dl (250-450); TOTAL PROTEIN 7.3 gm/dL (6.4-8.2)
[2019-12-28 06:10] LABS: HEP B CORE AB, IGM Negative (Negative); HEPATITIS B SURFACE AG Negative (Negative); HEPATITIS C VIRUS ANTIBODY <0.1 s/co (0.0-0.9)
== END | disposition home or self-care (01) ==
LOC: RESCLI 01:42 → LAB 01:42 → RESCLI 13:59
PROVIDERS: Student in an Organized Health Care Education/Training Program
DX: Z12.4 Encounter for screening for malignant neoplasm of cervix (principal); Z12.39 Encounter for other screening for malignant neoplasm of breast; K76.0 Fatty (change of) liver, not elsewhere classified; I10 Essential (primary) hypertension; J45.20 Mild intermittent asthma, uncomplicated; K21.9 Gastro-esophageal reflux disease without esophagitis; Z79.899 Other long term (current) drug therapy

== ENCOUNTER 2020-04-06 15:44 | Emergency (ER) | payer SELFPAY ==
[~2020-04-06] VITALS: Ht 160 cm; Wt 104.3 kg
[2020-04-06 16:33] LABS: BASO % 0.5 % (0.0-1.0); EOS # 0.1 10*3/uL (0.0-0.4); EOS % 0.7 % (1.0-4.0); HEMATOCRIT 39.3 % (37.0-47.0); LYMPH # 2.1 10*3/uL (1.3-4.4); LYMPH % 25.9 % (27.0-41.0); MEAN CELL VOLUME 81.4 fl (81.0-99.0); MEAN CORPUSCULAR HGB 25.9 pg (27.0-31.0); MEAN CORPUSCULAR HGB CONC 31.8 g/dl (33.0-37.0); MEAN PLATELET VOLUME 10.5 fl (9.6-12.3); MONO # 0.5 10*3/uL (0.1-1.0); MONO % 5.5 % (3.0-9.0); NEUT # 5.5 10*3/uL (2.3-7.9); PLATELET COUNT AUTOMATED 259 10*3/uL (130-400); RED BLOOD COUNT 4.83 10*6/uL (4.10-5.10); RED CELL DISTRI WIDTH 14.8 % (0-14.5); WHITE BLOOD COUNT 8.2 10*3/uL (4.8-10.8)
[2020-04-06 17:14] LABS: ALBUMIN 3.4 gm/dl (3.1-4.5); ALKALINE PHOSPHATASE 125 U/L (45-117); BUN 10 mg/dl (7-24); CHLORIDE 108 mmol/L (98-107); CREATININE 0.92 mg/dL (0.55-1.02); LIPASE 140 U/L (73-393); POTASSIUM 3.7 mmol/L (3.5-5.1); SGOT/AST 22 IU/L (3-35); SGPT/ALT 34 U/L (12-78); SODIUM 140 mmol/L (136-145); TOTAL PROTEIN 6.9 gm/dL (6.4-8.2)
[2020-04-06 17:25] LABS: TROPONIN I < 0.015 ng/ml (<0.045)
[2020-04-06] MEDS ORDERED: DOXYCYCLINE100 M3 PO (17:36)
[2020-04-06] MEDS ORDERED: MUCINEX1200 M1 PO (17:36)
[2020-04-06] MEDS ORDERED: PREDNISONE50 MG PO (17:36)
[2020-04-06] MEDS ORDERED: PROVENTIL HFA6.7 GM INH (17:37)
[2020-04-06] MEDS ORDERED: GUAIFENESIN AC473 M1 PO (17:37)
== END 2020-04-06 17:54 | disposition home or self-care (01) ==
LOC: ED 15:44
PROVIDERS: Nurse Practitioner Family
DX: J40 Bronchitis, not specified as acute or chronic (principal); F41.9 Anxiety disorder, unspecified; I10 Essential (primary) hypertension; K21.9 Gastro-esophageal reflux disease without esophagitis

== ENCOUNTER → 2020-05-09 | Outpatient (CLI) | payer SELFPAY ==
[~2020-05-09] MED LIST changes: +CEFUROXIME AXE500 MG PO; +DOXYCYCLINE100 M3 PO; +GUAIFENESIN AC473 M1 PO
== END | disposition home or self-care (01) ==
LOC: RESCLI 05-08 11:04
PROVIDERS: ATTEND Family Medicine
DX: R19.7 Diarrhea, unspecified (principal); Z91.09 Other allergy status, other than to drugs and biological substances; J45.20 Mild intermittent asthma, uncomplicated; K21.9 Gastro-esophageal reflux disease without esophagitis; I10 Essential (primary) hypertension; E61.1 Iron deficiency; K76.0 Fatty (change of) liver, not elsewhere classified; E55.9 Vitamin D deficiency, unspecified; R73.03 Prediabetes; Z79.899 Other long term (current) drug therapy; Z23 Encounter for immunization; Z98.51 Tubal ligation status; Z98.890 Other specified postprocedural states

== ENCOUNTER 2020-06-27 18:43 | Emergency (ER) | payer SELFPAY ==
[~2020-06-27] VITALS: Ht 160 cm; Wt 111.1 kg
[~2020-06-27 18:43] MED LIST changes: -CEFUROXIME AXE500 MG PO
[2020-06-27 19:45] LABS: BASO % 0.2 % (0.0-1.0); EOS # 0.1 10*3/uL (0.0-0.4); EOS % 1.2 % (1.0-4.0); HEMATOCRIT 39.9 % (37.0-47.0); LYMPH # 1.2 10*3/uL (1.3-4.4); LYMPH % 28.9 % (27.0-41.0); MEAN CELL VOLUME 81.3 fl (81.0-99.0); MEAN CORPUSCULAR HGB 25.9 pg (27.0-31.0); MEAN CORPUSCULAR HGB CONC 31.8 g/dl (33.0-37.0); MEAN PLATELET VOLUME 10.2 fl (9.6-12.3); MONO # 0.3 10*3/uL (0.1-1.0); MONO % 8.1 % (3.0-9.0); NEUT # 2.6 10*3/uL (2.3-7.9); NEUT % 61.4 % (47.0-73.0); PLATELET COUNT AUTOMATED 237 10*3/uL (130-400); RED BLOOD COUNT 4.91 10*6/uL (4.10-5.10); WHITE BLOOD COUNT 4.2 10*3/uL (4.8-10.8)
[2020-06-27 20:06] LABS: ALBUMIN 3.4 gm/dl (3.1-4.5); ALKALINE PHOSPHATASE 136 U/L (45-117); BUN 12 mg/dl (7-24); CHLORIDE 106 mmol/L (98-107); CREATININE 0.86 mg/dL (0.55-1.02); POTASSIUM 3.6 mmol/L (3.5-5.1); SGOT/AST 25 IU/L (3-35); SGPT/ALT 41 U/L (12-78); SODIUM 138 mmol/L (136-145); TOTAL PROTEIN 6.9 gm/dL (6.4-8.2)
[2020-06-27 21:08] LABS: BILIRUBIN Negative (Negative); BLOOD 3+ (Negative); CLARITY Turbid (Clear); COLOR Red (Yellow); GLUCOSE Negative (Negative); KETONE Negative (Negative); LEUKO ESTERASE 2+ (Negative); NITRITE Negative (Negative); UROBILINOGEN 0.2 E.U./dl (0.0-1.0)
[2020-06-27 21:14] LABS: RBC TNTC rbc/hpf (0-2)
[2020-06-27] MEDS ORDERED: CEFUROXIME AXE500 MG PO (21:34)
== END 2020-06-27 21:48 | disposition home or self-care (01) ==
LOC: ED 18:43
PROVIDERS: Nurse Practitioner Family
DX: N39.0 Urinary tract infection, site not specified (principal); Z79.899 Other long term (current) drug therapy

== ENCOUNTER → 2020-10-30 | Outpatient (CLI) | payer SELFPAY ==
[~2020-10-30] MED LIST changes: +CEFUROXIME AXE500 MG PO
== END | disposition home or self-care (01) ==
LOC: RESCLI 00:26
PROVIDERS: ATTEND Internal Medicine
DX: I11.0 Hypertensive heart disease with heart failure (principal); I50.30 Unspecified diastolic (congestive) heart failure; E78.5 Hyperlipidemia, unspecified; E55.9 Vitamin D deficiency, unspecified; E66.9 Obesity, unspecified; J45.20 Mild intermittent asthma, uncomplicated; R00.0 Tachycardia, unspecified; K21.9 Gastro-esophageal reflux disease without esophagitis; Z79.899 Other long term (current) drug therapy

== ENCOUNTER 2020-11-22 14:35 | Emergency (ER) | payer OTHER ==
[~2020-11-22] VITALS: Wt 104.3 kg
== END 2020-11-22 16:55 | disposition home or self-care (01) ==
LOC: ED 14:35
DX: S90.01XA Contusion of right ankle, initial encounter (principal); Z91.048 Other nonmedicinal substance allergy status; Z79.2 Long term (current) use of antibiotics; Z79.899 Other long term (current) drug therapy; Z90.49 Acquired absence of other specified parts of digestive tract; Z98.51 Tubal ligation status; W31.89XA Contact with other specified machinery, initial encounter; Y93.89 Activity, other specified; Y92.89 Other specified places as the place of occurrence of the external cause; Y99.0 Civilian activity done for income or pay

== ENCOUNTER → 2021-01-22 | Outpatient (CLI) | payer SELFPAY | END | disposition home or self-care (01) | LOC: RESCLI 00:52 | PROVIDERS: ATTEND Internal Medicine | DX: E78.5 Hyperlipidemia, unspecified (principal); I10 Essential (primary) hypertension; M65.9 Synovitis and tenosynovitis, unspecified; K21.9 Gastro-esophageal reflux disease without esophagitis; E66.9 Obesity, unspecified; G44.52 New daily persistent headache (NDPH); K76.0 Fatty (change of) liver, not elsewhere classified; E55.9 Vitamin D deficiency, unspecified; J45.20 Mild intermittent asthma, uncomplicated; J45.40 Moderate persistent asthma, uncomplicated; R93.1 Abnormal findings on diagnostic imaging of heart and coronary circulation; Z88.8 Allergy status to other drugs, medicaments and biological substances; Z91.09 Other allergy status, other than to drugs and biological substances; Z98.890 Other specified postprocedural states; Z98.51 Tubal ligation status ==

== ENCOUNTER 2021-01-23 17:18 | Emergency (ER) | payer SELFPAY ==
[~2021-01-23] VITALS: Wt 96.2 kg
[2021-01-23 17:42] LABS: BASO % 0.3 % (0.0-1.0); EOS % 0.1 % (1.0-4.0); HEMATOCRIT 39.9 % (37.0-47.0); LYMPH # 1.4 10*3/uL (1.3-4.4); LYMPH % 14.8 % (27.0-41.0); MEAN CELL VOLUME 82.8 fl (81.0-99.0); MEAN CORPUSCULAR HGB 27.2 pg (27.0-31.0); MEAN CORPUSCULAR HGB CONC 32.8 g/dl (33.0-37.0); MEAN PLATELET VOLUME 10.7 fl (9.6-12.3); MONO # 0.3 10*3/uL (0.1-1.0); MONO % 3.3 % (3.0-9.0); NEUT # 7.6 10*3/uL (2.3-7.9); NEUT % 81.4 % (47.0-73.0); PLATELET COUNT AUTOMATED 262 10*3/uL (130-400); RED BLOOD COUNT 4.82 10*6/uL (4.10-5.10); RED CELL DISTRI WIDTH 14.8 % (0-14.5); WHITE BLOOD COUNT 9.3 10*3/uL (4.8-10.8)
[2021-01-23 18:13] LABS: ALBUMIN 3.7 gm/dl (3.1-4.5); ALKALINE PHOSPHATASE 130 U/L (45-117); BUN 10 mg/dl (7-24); CHLORIDE 107 mmol/L (98-107); CREATININE 0.81 mg/dL (0.55-1.02); POTASSIUM 3.7 mmol/L (3.5-5.1); SGOT/AST 22 IU/L (3-35); SGPT/ALT 41 U/L (12-78); SODIUM 141 mmol/L (136-145); TOTAL PROTEIN 7.5 gm/dL (6.4-8.2)
[2021-01-23 18:23] LABS: TROPONIN I < 0.015 ng/ml (<0.045)
[2021-01-24] MEDS ORDERED: PROVENTIL HFA6.7 GM INH (00:11)
[2021-01-24] MEDS ORDERED: TESSALON PERLE100 M1 PO (00:11)
[2021-01-24] MEDS ORDERED: PREDNISONE20 M1 PO (00:11)
== END 2021-01-24 00:15 | disposition home or self-care (01) ==
LOC: ED 17:18
PROVIDERS: Emergency Medicine
DX: J40 Bronchitis, not specified as acute or chronic (principal); Z20.822 Contact with and (suspected) exposure to COVID-19; Z79.899 Other long term (current) drug therapy

== ENCOUNTER → 2021-02-27 | Outpatient (CLI) | payer SELFPAY ==
[2021-02-27 12:09] LABS: ALBUMIN 3.5 gm/dl (3.1-4.5); ALKALINE PHOSPHATASE 139 U/L (45-117); BUN 11 mg/dl (7-24); CHLORIDE 109 mmol/L (98-107); CHOLESTEROL 180 mg/dL (<200); CREATININE 0.73 mg/dL (0.55-1.02); LDL CHOLESTEROL 98 mg/dL (9-159); POTASSIUM 3.5 mmol/L (3.5-5.1); SGOT/AST 19 IU/L (3-35); SGPT/ALT 42 U/L (12-78); SODIUM 141 mmol/L (136-145); TOTAL PROTEIN 7.2 gm/dL (6.4-8.2); TRIGLYCERIDES 138 mg/dl (<150)
== END | disposition home or self-care (01) ==
LOC: LAB 11:01
PROVIDERS: Student in an Organized Health Care Education/Training Program; ATTEND Internal Medicine Cardiovascular Disease
DX: E78.5 Hyperlipidemia, unspecified (principal); E66.9 Obesity, unspecified

== ENCOUNTER → 2021-02-28 | Outpatient (CLI) | payer SELFPAY ==
[2021-02-28 15:26] LABS: BASO % 0.2 % (0.0-1.0); EOS % 0.3 % (1.0-4.0); HEMATOCRIT 38.3 % (37.0-47.0); LYMPH % 20.1 % (27.0-41.0); MEAN CELL VOLUME 82.9 fl (81.0-99.0); MEAN CORPUSCULAR HGB 26.8 pg (27.0-31.0); MEAN CORPUSCULAR HGB CONC 32.4 g/dl (33.0-37.0); MEAN PLATELET VOLUME 10.9 fl (9.6-12.3); MONO # 0.5 10*3/uL (0.1-1.0); MONO % 5.2 % (3.0-9.0); NEUT # 7.4 10*3/uL (2.3-7.9); PLATELET COUNT AUTOMATED 255 10*3/uL (130-400); RED BLOOD COUNT 4.62 10*6/uL (4.10-5.10); RED CELL DISTRI WIDTH 14.6 % (0-14.5)
== END | disposition home or self-care (01) ==
LOC: LAB 10:38
PROVIDERS: ATTEND Internal Medicine Cardiovascular Disease
DX: R07.89 Other chest pain (principal)

== ENCOUNTER → 2021-03-28 | Outpatient (CLI) | payer SELFPAY | END | disposition home or self-care (01) | LOC: RESCLI 00:18 | PROVIDERS: ATTEND Internal Medicine | DX: Z23 Encounter for immunization (principal); E78.5 Hyperlipidemia, unspecified; J45.40 Moderate persistent asthma, uncomplicated; E55.9 Vitamin D deficiency, unspecified; Z91.09 Other allergy status, other than to drugs and biological substances; I10 Essential (primary) hypertension; Z79.899 Other long term (current) drug therapy; Z98.890 Other specified postprocedural states ==

== ENCOUNTER 2021-07-26 10:29 | Emergency (ER) | payer SELFPAY ==
[~2021-07-26] VITALS: Ht 160 cm; Wt 99.8 kg
[2021-07-26] MEDS ORDERED: ZOFRAN4 MG PO (12:38)
[2021-07-26] MEDS ORDERED: Motrin,Rufen800 MG PO (12:38)
== END 2021-07-26 13:23 | disposition home or self-care (01) ==
LOC: ED 10:29
DX: R51.9 Headache, unspecified (principal); R11.0 Nausea; I10 Essential (primary) hypertension; K21.9 Gastro-esophageal reflux disease without esophagitis; Z79.899 Other long term (current) drug therapy; Z98.51 Tubal ligation status; Z90.49 Acquired absence of other specified parts of digestive tract

== ENCOUNTER → 2021-12-05 | Outpatient (CLI) | payer OTHER | END | disposition home or self-care (01) | LOC: MAMMO 09:30 | PROVIDERS: ATTEND Obstetrics & Gynecology | DX: Z12.31 Encounter for screening mammogram for malignant neoplasm of breast (principal) ==

== ENCOUNTER → 2022-01-15 | Outpatient (CLI) | payer SELFPAY | END | disposition home or self-care (01) | LOC: RESCLI 10:36 | PROVIDERS: ATTEND Internal Medicine | DX: I10 Essential (primary) hypertension (principal); R73.09 Other abnormal glucose; H93.90 Unspecified disorder of ear, unspecified ear; J45.40 Moderate persistent asthma, uncomplicated; E55.9 Vitamin D deficiency, unspecified; E78.5 Hyperlipidemia, unspecified; E66.9 Obesity, unspecified; K21.9 Gastro-esophageal reflux disease without esophagitis; Z79.899 Other long term (current) drug therapy; Z91.09 Other allergy status, other than to drugs and biological substances; Z79.01 Long term (current) use of anticoagulants ==

== ENCOUNTER → 2022-04-10 | Outpatient (CLI) | payer SELFPAY | END | disposition home or self-care (01) | LOC: RESCLI 15:55 | PROVIDERS: ATTEND Internal Medicine | DX: S30.861A Insect bite (nonvenomous) of abdominal wall, initial encounter (principal); I11.9 Hypertensive heart disease without heart failure; J45.40 Moderate persistent asthma, uncomplicated; E55.9 Vitamin D deficiency, unspecified; E78.5 Hyperlipidemia, unspecified; Z88.8 Allergy status to other drugs, medicaments and biological substances; Z82.49 Family history of ischemic heart disease and other diseases of the circulatory system; Z98.890 Other specified postprocedural states; Z91.09 Other allergy status, other than to drugs and biological substances; Z79.82 Long term (current) use of aspirin; Z79.899 Other long term (current) drug therapy; X58.XXXA Exposure to other specified factors, initial encounter; Y93.89 Activity, other specified; Y92.89 Other specified places as the place of occurrence of the external cause; Y99.8 Other external cause status ==

== ENCOUNTER 2022-05-20 11:30 | Emergency (ER) | payer SELFPAY ==
[~2022-05-20] VITALS: Ht 160 cm; Wt 93.0 kg
[2022-05-20 12:49] LABS: BASO % 0.4 % (0.0-1.0); EOS # 0.1 10*3/uL (0.0-0.4); EOS % 0.9 % (1.0-4.0); HEMATOCRIT 40.7 % (37.0-47.0); LYMPH # 1.5 10*3/uL (1.3-4.4); LYMPH % 27.5 % (27.0-41.0); MEAN CELL VOLUME 82.9 fl (81.0-99.0); MEAN CORPUSCULAR HGB 27.7 pg (27.0-31.0); MEAN CORPUSCULAR HGB CONC 33.4 g/dl (33.0-37.0); MEAN PLATELET VOLUME 10.8 fl (9.6-12.3); MONO # 0.2 10*3/uL (0.1-1.0); MONO % 3.6 % (3.0-9.0); NEUT # 3.7 10*3/uL (2.3-7.9); NEUT % 67.4 % (47.0-73.0); PLATELET COUNT AUTOMATED 246 10*3/uL (130-400); RED BLOOD COUNT 4.91 10*6/uL (4.10-5.10); RED CELL DISTRI WIDTH 13.9 % (0-14.5); WHITE BLOOD COUNT 5.5 10*3/uL (4.8-10.8)
[2022-05-20 13:04] LABS: ALKALINE PHOSPHATASE 118 U/L (46-116); BUN 8 mg/dl (9-23); CHLORIDE 104 mmol/L (98-107); CREATININE 0.88 mg/dL (0.55-1.02); LIPASE 40 U/L (12-53); POTASSIUM 3.5 mmol/L (3.4-5.1); SGPT/ALT 11 U/L (10-49); SODIUM 138 mmol/L (136-145); TOTAL PROTEIN 7.1 gm/dL (6.0-8.0)
[2022-05-20 13:07] LABS: ACT PARTIAL THROMBO TIME 28.8 SECONDS (20.0-32.1)
[2022-05-20 13:09] LABS: BETA-HCG, QUANT < 0.0 mIU/mL (0-10)
[2022-05-20] MEDS ORDERED: CYCLOBENZAPRINE10 MG PO (17:13)
[2022-05-20] MEDS ORDERED: Motrin,Rufen800 MG PO (17:13)
== END 2022-05-20 19:31 | disposition home or self-care (01) ==
LOC: ED 11:30
PROVIDERS: Emergency Medicine
DX: S29.012A Strain of muscle and tendon of back wall of thorax, initial encounter (principal); I10 Essential (primary) hypertension; Z79.899 Other long term (current) drug therapy; X50.1XXA Overexertion from prolonged static or awkward postures, initial encounter; Y93.89 Activity, other specified; Y92.89 Other specified places as the place of occurrence of the external cause; Y99.9 Unspecified external cause status

== ENCOUNTER 2022-05-23 09:48 | Emergency (ER) | payer SELFPAY ==
[~2022-05-23] VITALS: Ht 160 cm; Wt 93.0 kg
[2022-05-23 10:35] LABS: BASO % 0.5 % (0.0-1.0); EOS # 0.1 10*3/uL (0.0-0.4); EOS % 0.9 % (1.0-4.0); HEMATOCRIT 40.6 % (37.0-47.0); LYMPH # 1.4 10*3/uL (1.3-4.4); LYMPH % 23.7 % (27.0-41.0); MEAN CELL VOLUME 83.2 fl (81.0-99.0); MEAN CORPUSCULAR HGB 27.5 pg (27.0-31.0); MEAN PLATELET VOLUME 10.5 fl (9.6-12.3); MONO # 0.2 10*3/uL (0.1-1.0); MONO % 3.8 % (3.0-9.0); NEUT # 4.1 10*3/uL (2.3-7.9); NEUT % 70.9 % (47.0-73.0); PLATELET COUNT AUTOMATED 259 10*3/uL (130-400); RED BLOOD COUNT 4.88 10*6/uL (4.10-5.10); RED CELL DISTRI WIDTH 13.7 % (0-14.5); WHITE BLOOD COUNT 5.8 10*3/uL (4.8-10.8)
[2022-05-23 10:47] LABS: ACT PARTIAL THROMBO TIME 28.6 SECONDS (20.0-32.1)
[2022-05-23 10:53] LABS: ALKALINE PHOSPHATASE 104 U/L (46-116); BUN 10 mg/dl (9-23); CHLORIDE 107 mmol/L (98-107); CREATININE 0.69 mg/dL (0.55-1.02); LIPASE 40 U/L (12-53); POTASSIUM 3.9 mmol/L (3.4-5.1); SGPT/ALT 12 U/L (10-49); SODIUM 142 mmol/L (136-145); TOTAL PROTEIN 6.8 gm/dL (6.0-8.0)
[2022-05-23] MEDS ORDERED: CYCLOBENZAPRINE10 MG PO (11:34)
[2022-05-23] MEDS ORDERED: RELAFEN500 M1 PO (11:34)
[2022-05-23] MEDS ORDERED: LIDODERM1 EACH T (11:34)
== END 2022-05-23 11:57 | disposition home or self-care (01) ==
LOC: ED 09:48
PROVIDERS: Family Medicine
DX: R07.81 Pleurodynia (principal); E11.9 Type 2 diabetes mellitus without complications; I10 Essential (primary) hypertension; Z79.899 Other long term (current) drug therapy; Z98.51 Tubal ligation status; Z90.49 Acquired absence of other specified parts of digestive tract

== ENCOUNTER → 2022-05-26 | Outpatient (CLI) | payer SELFPAY ==
[~2022-05-26] MED LIST changes: +LIDODERM1 EACH T; +RELAFEN500 M1 PO
[2022-05-26 13:38] LABS: CHOLESTEROL 174 mg/dL (<200); LDL CHOLESTEROL 107 mg/dL (9-159); TRIGLYCERIDES 80 mg/dl (<150)
== END | disposition home or self-care (01) ==
LOC: RESCLI 10:40
PROVIDERS: Student in an Organized Health Care Education/Training Program; ATTEND Internal Medicine
DX: Z23 Encounter for immunization (principal); I10 Essential (primary) hypertension; J45.20 Mild intermittent asthma, uncomplicated; K21.9 Gastro-esophageal reflux disease without esophagitis; E78.5 Hyperlipidemia, unspecified; E66.9 Obesity, unspecified; E55.9 Vitamin D deficiency, unspecified; Z68.36 Body mass index [BMI] 36.0-36.9, adult; Z91.09 Other allergy status, other than to drugs and biological substances; Z79.899 Other long term (current) drug therapy

== ENCOUNTER → 2022-06-23 | Outpatient (CLI) | payer SELFPAY | END | disposition home or self-care (01) | LOC: RESCLI 00:33 | PROVIDERS: ATTEND Internal Medicine | DX: Z53.9 Procedure and treatment not carried out, unspecified reason (principal) ==

== ENCOUNTER 2022-09-26 07:41 | Inpatient (IN) | payer SELFPAY ==
[~2022-09-26] VITALS: Ht 160 cm; Wt 88.9 kg
[2022-09-26 07:51] VITALS: BP 118/68
[2022-09-26 08:06] LABS: BASO % 0.7 % (0.0-1.0); EOS % 0.9 % (1.0-4.0); HEMATOCRIT 38.3 % (37.0-47.0); LYMPH # 1.2 10*3/uL (1.3-4.4); LYMPH % 25.2 % (27.0-41.0); MEAN CELL VOLUME 86.1 fl (81.0-99.0); MEAN CORPUSCULAR HGB 28.1 pg (27.0-31.0); MEAN CORPUSCULAR HGB CONC 32.6 g/dl (33.0-37.0); MEAN PLATELET VOLUME 10.5 fl (9.6-12.3); MONO # 0.2 10*3/uL (0.1-1.0); MONO % 4.3 % (3.0-9.0); NEUT # 3.2 10*3/uL (2.3-7.9); NEUT % 68.7 % (47.0-73.0); PLATELET COUNT AUTOMATED 237 10*3/uL (130-400); RED BLOOD COUNT 4.45 10*6/uL (4.10-5.10); RED CELL DISTRI WIDTH 14.1 % (0-14.5); WHITE BLOOD COUNT 4.6 10*3/uL (4.8-10.8)
[2022-09-26 08:14] LABS: ACT PARTIAL THROMBO TIME 28.2 SECONDS (20.0-32.1); INTERNATIONAL NORM RATIO 1.1 (2.0-3.5)
[2022-09-26 08:46] LABS: BETA-HCG, QUANT < 3.0 mIU/mL (0-10); LIPASE 32 U/L (12-53)
[2022-09-26 08:47] LABS: ALKALINE PHOSPHATASE 90 U/L (46-116); BUN 7 mg/dl (9-23); CHLORIDE 108 mmol/L (98-107); SGPT/ALT 11 U/L (10-49); TOTAL PROTEIN 6.4 gm/dL (6.0-8.0)
[2022-09-26 10:48] VITALS: BP 112/66
[2022-09-26 14:53] VITALS: BP 114/62
[2022-09-26 17:20] VITALS: BP 143/85
[2022-09-26 20:00] VITALS: BP 129/75
[2022-09-27] VITALS: BP 111/55
[2022-09-27 06:56] LABS: BASO % 0.6 % (0.0-1.0); EOS # 0.1 10*3/uL (0.0-0.4); EOS % 1.1 % (1.0-4.0); HEMATOCRIT 37.5 % (37.0-47.0); LYMPH # 1.3 10*3/uL (1.3-4.4); LYMPH % 27.2 % (27.0-41.0); MEAN CELL VOLUME 87.2 fl (81.0-99.0); MEAN CORPUSCULAR HGB 27.7 pg (27.0-31.0); MEAN CORPUSCULAR HGB CONC 31.7 g/dl (33.0-37.0); MEAN PLATELET VOLUME 11.1 fl (9.6-12.3); MONO # 0.3 10*3/uL (0.1-1.0); NEUT % 64.7 % (47.0-73.0); PLATELET COUNT AUTOMATED 206 10*3/uL (130-400); RED CELL DISTRI WIDTH 14.6 % (0-14.5); WHITE BLOOD COUNT 4.6 10*3/uL (4.8-10.8)
[2022-09-27 08:00] VITALS: BP 136/81
[2022-09-27 08:20] LABS: BUN 12 mg/dl (9-23); CHLORIDE 109 mmol/L (98-107); THYROID STIM HORMONE (HS) 1.555 uIU/ml (0.550-4.780)
[2022-09-27 08:33] LABS: POTASSIUM 4.3 mmol/L (3.4-5.1)
[2022-09-27 11:33] LABS: BILIRUBIN Negative (Negative); BLOOD Trace-Intact (Negative); CLARITY Clear (Clear); COLOR Yellow (Yellow); GLUCOSE Negative (Negative); KETONE Negative (Negative); LEUKO ESTERASE Negative (Negative); NITRITE Negative (Negative); SPECIFIC GRAVITY <= 1.005 (1.001-1.030); UROBILINOGEN 0.2 E.U./dl (0.0-1.0)
[2022-09-27 11:40] LABS: BACTERIA 1+
[2022-09-27 11:41] LABS: CALCIUM OXALATE CRYSTALS Trace
[2022-09-27 12:00] VITALS: BP 140/76
[2022-09-27 16:00] VITALS: BP 122/65
[2022-09-27 16:59] LABS: LIPASE 125 U/L (12-53)
[2022-09-27 20:00] VITALS: BP 135/79
[2022-09-28] VITALS: BP 90/44
[2022-09-28 06:53] LABS: BASO % 0.5 % (0.0-1.0); EOS # 0.1 10*3/uL (0.0-0.4); EOS % 1.3 % (1.0-4.0); HEMATOCRIT 36.6 % (37.0-47.0); LYMPH # 1.6 10*3/uL (1.3-4.4); LYMPH % 26.8 % (27.0-41.0); MEAN CELL VOLUME 87.6 fl (81.0-99.0); MEAN CORPUSCULAR HGB 27.8 pg (27.0-31.0); MEAN CORPUSCULAR HGB CONC 31.7 g/dl (33.0-37.0); MEAN PLATELET VOLUME 10.8 fl (9.6-12.3); MONO # 0.4 10*3/uL (0.1-1.0); MONO % 6.7 % (3.0-9.0); NEUT # 3.9 10*3/uL (2.3-7.9); NEUT % 64.5 % (47.0-73.0); PLATELET COUNT AUTOMATED 222 10*3/uL (130-400); RED BLOOD COUNT 4.18 10*6/uL (4.10-5.10); RED CELL DISTRI WIDTH 14.2 % (0-14.5); WHITE BLOOD COUNT 6.1 10*3/uL (4.8-10.8)
[2022-09-28 07:42] LABS: ALKALINE PHOSPHATASE 83 U/L (46-116); BUN 8 mg/dl (9-23); CHLORIDE 105 mmol/L (98-107); POTASSIUM 4.2 mmol/L (3.4-5.1); SGPT/ALT 29 U/L (10-49); TOTAL PROTEIN 5.8 gm/dL (6.0-8.0)
[2022-09-28 08:00] VITALS: BP 100/58
[2022-09-28 12:00] VITALS: BP 118/68
[2022-09-28 16:00] VITALS: BP 145/89
[2022-09-28 20:00] VITALS: BP 134/66
[2022-09-29] VITALS: BP 104/57
[2022-09-29 06:42] LABS: BASO % 0.3 % (0.0-1.0); EOS # 0.1 10*3/uL (0.0-0.4); EOS % 1.1 % (1.0-4.0); HEMATOCRIT 36.6 % (37.0-47.0); LYMPH # 1.6 10*3/uL (1.3-4.4); MEAN CELL VOLUME 86.7 fl (81.0-99.0); MEAN CORPUSCULAR HGB 28.4 pg (27.0-31.0); MEAN CORPUSCULAR HGB CONC 32.8 g/dl (33.0-37.0); MEAN PLATELET VOLUME 10.9 fl (9.6-12.3); MONO # 0.5 10*3/uL (0.1-1.0); MONO % 7.9 % (3.0-9.0); NEUT # 4.2 10*3/uL (2.3-7.9); NEUT % 65.4 % (47.0-73.0); PLATELET COUNT AUTOMATED 193 10*3/uL (130-400); RED BLOOD COUNT 4.22 10*6/uL (4.10-5.10); RED CELL DISTRI WIDTH 13.8 % (0-14.5); WHITE BLOOD COUNT 6.4 10*3/uL (4.8-10.8)
[2022-09-29 07:38] LABS: ALKALINE PHOSPHATASE 103 U/L (46-116); BUN 6 mg/dl (9-23); CHLORIDE 104 mmol/L (98-107); CHOLESTEROL 147 mg/dL (<200); LDL CHOLESTEROL 84 mg/dL (9-159); LIPASE 33 U/L (12-53); POTASSIUM 3.7 mmol/L (3.4-5.1); SGPT/ALT 77 U/L (10-49); TOTAL PROTEIN 5.9 gm/dL (6.0-8.0); TRIGLYCERIDES 82 mg/dl (<150)
[2022-09-29 08:00] VITALS: BP 145/85
[2022-09-29 12:00] VITALS: BP 151/81
[2022-09-29 16:00] VITALS: BP 129/79
[2022-09-29 20:00] VITALS: BP 143/70
[2022-09-30] VITALS: BP 94/44
[2022-09-30 06:45] LABS: BASO % 0.4 % (0.0-1.0); EOS # 0.1 10*3/uL (0.0-0.4); EOS % 1.5 % (1.0-4.0); HEMATOCRIT 37.3 % (37.0-47.0); LYMPH # 1.3 10*3/uL (1.3-4.4); LYMPH % 26.8 % (27.0-41.0); MEAN CELL VOLUME 84.8 fl (81.0-99.0); MEAN CORPUSCULAR HGB 28.4 pg (27.0-31.0); MEAN CORPUSCULAR HGB CONC 33.5 g/dl (33.0-37.0); MEAN PLATELET VOLUME 11.3 fl (9.6-12.3); MONO # 0.3 10*3/uL (0.1-1.0); MONO % 6.6 % (3.0-9.0); NEUT # 3.1 10*3/uL (2.3-7.9); NEUT % 64.7 % (47.0-73.0); PLATELET COUNT AUTOMATED 222 10*3/uL (130-400); RED CELL DISTRI WIDTH 13.8 % (0-14.5); WHITE BLOOD COUNT 4.8 10*3/uL (4.8-10.8)
[2022-09-30 07:35] LABS: ALKALINE PHOSPHATASE 105 U/L (46-116); BUN 7 mg/dl (9-23); CHLORIDE 105 mmol/L (98-107); LIPASE 32 U/L (12-53); POTASSIUM 3.7 mmol/L (3.4-5.1); SGPT/ALT 59 U/L (10-49); TOTAL PROTEIN 6.1 gm/dL (6.0-8.0)
[2022-09-30 08:00] VITALS: BP 129/78
[2022-09-30 12:00] VITALS: BP 148/78
[2022-09-30] MEDS ORDERED: ONDANSETRON4 MG SL (14:14)
== END 2022-09-30 14:14 | disposition home or self-care (01) | DRG 391 ==
LOC: ED 07:41 → EDHOLD 13:17 → 5E 13:17 → EDHOLD 13:18 → 5E 13:59
PROVIDERS: Emergency Medicine; Internal Medicine; Student in an Organized Health Care Education/Training Program; ADMIT Family Medicine; ATTEND Family Medicine
DX: K52.9 Noninfective gastroenteritis and colitis, unspecified (principal); K85.90 Acute pancreatitis without necrosis or infection, unspecified; E87.6 Hypokalemia; K21.9 Gastro-esophageal reflux disease without esophagitis; I10 Essential (primary) hypertension; R51.9 Headache, unspecified; R73.9 Hyperglycemia, unspecified; J45.909 Unspecified asthma, uncomplicated; E66.9 Obesity, unspecified; R33.9 Retention of urine, unspecified; Z82.49 Family history of ischemic heart disease and other diseases of the circulatory system; Z79.899 Other long term (current) drug therapy; Z90.49 Acquired absence of other specified parts of digestive tract; Z98.51 Tubal ligation status; Z79.51 Long term (current) use of inhaled steroids; Z68.34 Body mass index [BMI] 34.0-34.9, adult

== ENCOUNTER 2022-12-14 21:53 | Emergency (ER) | payer SELFPAY ==
[~2022-12-14] VITALS: Ht 160 cm; Wt 81.6 kg
[~2022-12-14 21:53] MED LIST changes: +ONDANSETRON4 MG SL
== END 2022-12-14 22:20 | disposition left against medical advice (07) ==
LOC: ED 21:53
DX: L03.311 Cellulitis of abdominal wall (principal); J45.909 Unspecified asthma, uncomplicated; F41.9 Anxiety disorder, unspecified; F32.A Depression, unspecified; I10 Essential (primary) hypertension; K21.9 Gastro-esophageal reflux disease without esophagitis; Z90.49 Acquired absence of other specified parts of digestive tract; Z98.51 Tubal ligation status

== ENCOUNTER 2023-02-15 20:29 | Emergency (ER) | payer SELFPAY ==
[~2023-02-15] VITALS: Ht 160 cm; Wt 90.7 kg
[2023-02-15] MEDS ORDERED: AMOXICILLIN875 MG PO (21:04)
== END 2023-02-15 21:01 | disposition home or self-care (01) ==
LOC: ED 20:29
DX: K04.7 Periapical abscess without sinus (principal); J45.909 Unspecified asthma, uncomplicated; F41.9 Anxiety disorder, unspecified; F32.A Depression, unspecified; I10 Essential (primary) hypertension; K21.9 Gastro-esophageal reflux disease without esophagitis; Z90.49 Acquired absence of other specified parts of digestive tract; Z98.51 Tubal ligation status

== ENCOUNTER 2023-05-18 22:08 | Emergency (ER) | payer SELFPAY ==
[~2023-05-18] VITALS: Ht 160 cm; Wt 104.8 kg
[~2023-05-18 22:08] MED LIST changes: +AMOXICILLIN875 MG PO
[2023-05-18 22:47] LABS: BASO % 0.5 % (0.0-1.0); EOS # 0.1 10*3/uL (0.0-0.4); EOS % 1.5 % (1.0-4.0); HEMATOCRIT 36.1 % (37.0-47.0); LYMPH # 2.3 10*3/uL (1.3-4.4); LYMPH % 26.8 % (27.0-41.0); MEAN CELL VOLUME 83.2 fl (81.0-99.0); MEAN CORPUSCULAR HGB 27.9 pg (27.0-31.0); MEAN CORPUSCULAR HGB CONC 33.5 g/dl (33.0-37.0); MEAN PLATELET VOLUME 10.6 fl (9.6-12.3); MONO # 0.6 10*3/uL (0.1-1.0); MONO % 6.7 % (3.0-9.0); NEUT # 5.5 10*3/uL (2.3-7.9); NEUT % 64.3 % (47.0-73.0); PLATELET COUNT AUTOMATED 253 10*3/uL (130-400); RED BLOOD COUNT 4.34 10*6/uL (4.10-5.10); RED CELL DISTRI WIDTH 14.2 % (0-14.5); WHITE BLOOD COUNT 8.5 10*3/uL (4.8-10.8)
[2023-05-18 23:09] LABS: ALKALINE PHOSPHATASE 121 U/L (46-116); BUN 15 mg/dl (9-23); CHLORIDE 107 mmol/L (98-107); LIPASE 48 U/L (12-53); POTASSIUM 3.8 mmol/L (3.4-5.1); SGPT/ALT 13 U/L (5-49); TOTAL PROTEIN 6.4 gm/dL (6.0-8.0)
[2023-05-18 23:13] LABS: ETHYL ALCOHOL < 3.0 mg/dl (<3)
[2023-05-19 01:44] LABS: BILIRUBIN Negative (Negative); BLOOD Negative (Negative); CLARITY Turbid (Clear); COLOR Yellow (Yellow); GLUCOSE Negative (Negative); KETONE Negative (Negative); LEUKO ESTERASE 2+ (Negative); NITRITE Negative (Negative); UROBILINOGEN 0.2 E.U./dl (0.0-1.0)
[2023-05-19 01:52] LABS: URINE AMPHETAMINES Negative (1000ng/ml); URINE BARBITURATES Negative (200ng/ml); URINE BENZODIAZEPINES Negative (200ng/ml); URINE CANNABINOIDS (THC) Negative (50ng/ml); URINE COCAINE Negative (300ng/ml); URINE METHADONE Negative (300ng/ml); URINE OPIATES Negative (300ng/ml); URINE PHENCYCLIDINE Negative (25ng/ml)
[2023-05-19 01:55] LABS: BACTERIA 1+; EPITHELIAL CELLS TNTC; WBC 16-20 wbc/hpf (0-5)
[2023-05-19] MEDS ORDERED: AMOX-CLAV 875-1 EACH PO (02:07)
[2023-05-19] MEDS ORDERED: PREDNISONE20 M1 PO (02:07)
== END 2023-05-19 02:20 | disposition home or self-care (01) ==
LOC: ED 22:08
PROVIDERS: Internal Medicine
DX: J44.1 Chronic obstructive pulmonary disease with (acute) exacerbation (principal); F41.9 Anxiety disorder, unspecified; F32.A Depression, unspecified; I10 Essential (primary) hypertension; K21.9 Gastro-esophageal reflux disease without esophagitis; Z20.822 Contact with and (suspected) exposure to COVID-19; Z90.49 Acquired absence of other specified parts of digestive tract; Z98.51 Tubal ligation status; Z79.899 Other long term (current) drug therapy; F17.290 Nicotine dependence, other tobacco product, uncomplicated

== ENCOUNTER → 2023-05-20 | Outpatient (CLI) | payer SELFPAY ==
[~2023-05-20] MED LIST changes: +AMOX-CLAV 875-1 EACH PO
== END | disposition home or self-care (01) ==
LOC: RESCLI 11:02
PROVIDERS: ATTEND Family Medicine
DX: J45.40 Moderate persistent asthma, uncomplicated (principal); I10 Essential (primary) hypertension; E55.9 Vitamin D deficiency, unspecified; Z91.09 Other allergy status, other than to drugs and biological substances; E78.5 Hyperlipidemia, unspecified; Z79.899 Other long term (current) drug therapy; Z88.8 Allergy status to other drugs, medicaments and biological substances

== ENCOUNTER 2023-08-05 16:08 | Emergency (ER) | payer SELFPAY ==
[~2023-08-05] VITALS: Ht 160 cm; Wt 108.9 kg
[2023-08-05] MEDS ORDERED: Ondansetron Hydrochloride 4 MG/2 ML VIAL IV ONE (16:45)
[2023-08-05] MEDS ORDERED: SODIUM CHLORIDE 0.9% 1,000 ML IV ONE (16:45)
[2023-08-05] MEDS ORDERED: Meclizine Hydrochloride 25 MG TAB PO ONE (16:45)
[2023-08-05 17:08] LABS: BASO % 0.4 % (0.0-1.0); EOS % 0.4 % (1.0-4.0); HEMATOCRIT 40.6 % (37.0-47.0); LYMPH % 22.2 % (27.0-41.0); MEAN CELL VOLUME 83.7 fl (81.0-99.0); MEAN CORPUSCULAR HGB 26.8 pg (27.0-31.0); MEAN PLATELET VOLUME 10.6 fl (9.6-12.3); MONO # 0.4 10*3/uL (0.1-1.0); MONO % 4.9 % (3.0-9.0); NEUT # 6.4 10*3/uL (2.3-7.9); NEUT % 71.9 % (47.0-73.0); PLATELET COUNT AUTOMATED 280 10*3/uL (130-400); RED BLOOD COUNT 4.85 10*6/uL (4.10-5.10); RED CELL DISTRI WIDTH 14.3 % (0-14.5); WHITE BLOOD COUNT 8.9 10*3/uL (4.8-10.8)
[2023-08-05 17:23] LABS: ACT PARTIAL THROMBO TIME 26.6 SECONDS (20.0-32.1)
[2023-08-05 17:43] LABS: ALKALINE PHOSPHATASE 132 U/L (46-116); BUN 13 mg/dl (9-23); CHLORIDE 106 mmol/L (98-107); LIPASE 39 U/L (12-53); POTASSIUM 4.1 mmol/L (3.4-5.1); SGPT/ALT 25 U/L (5-49); TOTAL PROTEIN 6.8 gm/dL (6.0-8.0)
[2023-08-05 17:45] LABS: BETA-HCG, QUANT < 3.0 mIU/mL (3-10)
[2023-08-05] MEDS ORDERED: REGLAN10 M1 PO (19:14)
[2023-08-05] MEDS ORDERED: ANTIVERT25 M2 PO (19:14)
== END 2023-08-05 19:21 | disposition home or self-care (01) ==
LOC: ED 16:08
PROVIDERS: Emergency Medicine
DX: R42 Dizziness and giddiness (principal); R11.2 Nausea with vomiting, unspecified; I10 Essential (primary) hypertension; J45.909 Unspecified asthma, uncomplicated; F41.9 Anxiety disorder, unspecified; F32.A Depression, unspecified; K21.9 Gastro-esophageal reflux disease without esophagitis; R10.2 Pelvic and perineal pain; Z90.49 Acquired absence of other specified parts of digestive tract; Z98.51 Tubal ligation status

== ENCOUNTER 2023-10-11 22:20 | Emergency (ER) | payer SELFPAY ==
[~2023-10-11] VITALS: Ht 160 cm; Wt 117.9 kg
[~2023-10-11 22:20] MED LIST changes: +ANTIVERT25 M2 PO; +REGLAN10 M1 PO
== END 2023-10-11 23:10 | disposition left against medical advice (07) ==
LOC: ED 22:20
DX: M79.652 Pain in left thigh (principal); Z53.29 Procedure and treatment not carried out because of patient's decision for other reasons; J45.909 Unspecified asthma, uncomplicated; F41.9 Anxiety disorder, unspecified; F32.A Depression, unspecified; I10 Essential (primary) hypertension; K21.9 Gastro-esophageal reflux disease without esophagitis; Z90.49 Acquired absence of other specified parts of digestive tract; Z98.51 Tubal ligation status

== ENCOUNTER 2023-10-13 16:15 | Emergency (ER) | payer SELFPAY ==
[~2023-10-13] VITALS: Ht 160 cm; Wt 108.9 kg
[2023-10-13] MEDS ORDERED: LIPITOR20 MG PO (16:40)
[2023-10-13] MEDS ORDERED: PREDNISONE10 MG PO (17:11)
[2023-10-13] MEDS ORDERED: methylPREDNISolone sod succ 125 MG VIAL IM ONE (17:15)
== END 2023-10-13 17:19 | disposition home or self-care (01) ==
LOC: ED 16:15
DX: L25.9 Unspecified contact dermatitis, unspecified cause (principal); J45.909 Unspecified asthma, uncomplicated; F41.9 Anxiety disorder, unspecified; F32.A Depression, unspecified; I10 Essential (primary) hypertension; K21.9 Gastro-esophageal reflux disease without esophagitis; Z90.49 Acquired absence of other specified parts of digestive tract; Z98.51 Tubal ligation status

== ENCOUNTER 2024-01-21 16:29 | Observation (INO) | payer SELFPAY ==
[~2024-01-21] VITALS: Ht 160 cm; Wt 113.4 kg
[~2024-01-21 16:29] MED LIST changes: +LIPITOR20 MG PO
[2024-01-21 16:37] VITALS: BP 142/80
[2024-01-21 17:06] LABS: BASO % 0.5 % (0.0-1.0); EOS # 0.1 10*3/uL (0.0-0.4); EOS % 1.2 % (1.0-4.0); HEMATOCRIT 38.5 % (37.0-47.0); LYMPH # 2.1 10*3/uL (1.3-4.4); LYMPH % 24.7 % (27.0-41.0); MEAN CELL VOLUME 80.9 fl (81.0-99.0); MEAN CORPUSCULAR HGB 26.5 pg (27.0-31.0); MEAN CORPUSCULAR HGB CONC 32.7 g/dl (33.0-37.0); MEAN PLATELET VOLUME 10.4 fl (9.6-12.3); MONO # 0.5 10*3/uL (0.1-1.0); MONO % 6.5 % (3.0-9.0); NEUT # 5.6 10*3/uL (2.3-7.9); NEUT % 66.9 % (47.0-73.0); PLATELET COUNT AUTOMATED 272 10*3/uL (130-400); RED BLOOD COUNT 4.76 10*6/uL (4.10-5.10); RED CELL DISTRI WIDTH 14.6 % (0-14.5); WHITE BLOOD COUNT 8.4 10*3/uL (4.8-10.8)
[2024-01-21 17:25] LABS: ACT PARTIAL THROMBO TIME 28.8 SECONDS (20.0-32.1)
[2024-01-21 17:34] LABS: ALKALINE PHOSPHATASE 148 U/L (46-116); BUN 10 mg/dl (9-23); CHLORIDE 105 mmol/L (98-107); POTASSIUM 3.6 mmol/L (3.4-5.1); SGPT/ALT 32 U/L (5-49); TOTAL PROTEIN 6.9 gm/dL (6.0-8.0)
[2024-01-21] MEDS ORDERED: Ketorolac Tromethamine 15 MG/ML VIAL IV ONE (17:40)
[2024-01-21] MEDS ORDERED: ASPIRIN, CHEWABLE 81 MG TAB PO ONE (18:15)
[2024-01-21 18:17] VITALS: BP 149/88
[2024-01-21] MEDS ORDERED: TEMAZEPAM 15 MG CAP PO PRN (19:50)
[2024-01-21] MEDS ORDERED: BISACODYL 10 MG SUPP R PRN (19:50)
[2024-01-21] MEDS ORDERED: Magnesium Hydroxide 30 ML UDC PO PRN (19:50)
[2024-01-21] MEDS ORDERED: ACETAMINOPHEN 325 MG TAB PO PRN (19:50)
[2024-01-21] MEDS ORDERED: Ondansetron Hydrochloride 4 MG/2 ML VIAL IV PRN (19:50)
[2024-01-21] MEDS ORDERED: Acetaminophen/Hydrocodone 5 MG/325 MG TABLET PO PRN (19:50)
[2024-01-21] MEDS ORDERED: ACETAMINOPHEN 650 MG SUPP R PRN (19:50)
[2024-01-21] MEDS ORDERED: BISACODYL 5 MG TAB PO PRN (19:50)
[2024-01-21] MEDS ORDERED: MORPHINE Sulfate 2 MG/ML SYR IV PRN (19:50)
[2024-01-21] MEDS ORDERED: ASPIRIN 325 MG TAB PO ONE (20:00)
[2024-01-21] MEDS ORDERED: Technetium Tc 99M Tetrofosmi 0.23 MG KIT IJ SCH (20:05)
[2024-01-21 20:07] VITALS: BP 153/94
[2024-01-21] MEDS ORDERED: ASPIRIN81 M1 PO (20:43)
[2024-01-21 21:02] VITALS: BP 149/86
[2024-01-22 00:50] VITALS: BP 102/60; BP 110/66
[2024-01-22] MEDS ORDERED: Ketorolac Tromethamine 30 MG/ML VIAL IV ONE (04:34)
[2024-01-22] MEDS ORDERED: ASPIRIN 325 MG TAB PO ONE (04:34)
[2024-01-22 05:11] VITALS: BP 106/50
[2024-01-22] MEDS ORDERED: Pantoprazole Sodium 40 MG TAB PO SCH (06:00)
[2024-01-22] MEDS ORDERED: Pantoprazole Sodium 40 MG VIAL IV SCH (06:00)
[2024-01-22 06:28] LABS: BASO % 0.3 % (0.0-1.0); EOS # 0.2 10*3/uL (0.0-0.4); EOS % 2.9 % (1.0-4.0); HEMATOCRIT 37.2 % (37.0-47.0); LYMPH # 2.2 10*3/uL (1.3-4.4); MEAN CORPUSCULAR HGB 26.4 pg (27.0-31.0); MEAN CORPUSCULAR HGB CONC 32.5 g/dl (33.0-37.0); MEAN PLATELET VOLUME 10.8 fl (9.6-12.3); MONO # 0.4 10*3/uL (0.1-1.0); MONO % 6.3 % (3.0-9.0); NEUT # 3.4 10*3/uL (2.3-7.9); NEUT % 54.2 % (47.0-73.0); PLATELET COUNT AUTOMATED 251 10*3/uL (130-400); RED BLOOD COUNT 4.59 10*6/uL (4.10-5.10); WHITE BLOOD COUNT 6.2 10*3/uL (4.8-10.8)
[2024-01-22 06:39] LABS: ACT PARTIAL THROMBO TIME 29.8 SECONDS (20.0-32.1)
[2024-01-22] MEDS ORDERED: Regadenoson 0.4 MG/5 ML SYR IV ONE (06:49)
[2024-01-22 06:59] LABS: ALKALINE PHOSPHATASE 139 U/L (46-116); BUN 11 mg/dl (9-23); CHLORIDE 105 mmol/L (98-107); CHOLESTEROL 185 mg/dL (<200); FREE T4 1.29 ng/dl (0.89-1.76); LDL CHOLESTEROL 114 mg/dL (9-159); SGPT/ALT 29 U/L (5-49); TOTAL PROTEIN 6.5 gm/dL (6.0-8.0); TRIGLYCERIDES 172 mg/dl (<150)
[2024-01-22 08:00] VITALS: BP 133/83
[2024-01-22 08:36] LABS: VITAMIN D, 25-HYDROXY 34.1 ng/mL (30-100)
[2024-01-22] MEDS ORDERED: Technetium Tc 99M Tetrofosmi 0.23 MG KIT IJ SCH (10:00)
[2024-01-22] MEDS ORDERED: ASPIRIN ENTERIC COATED 81 MG TAB PO SCH (10:00)
[2024-01-22] MEDS ORDERED: Enoxaparin Sodium 40 MG/0.4 ML SYR SC SCH (10:00)
== END 2024-01-22 14:57 | disposition home or self-care (01) ==
LOC: ED 16:29 → EDHOLD 18:27
PROVIDERS: Emergency Medicine; Student in an Organized Health Care Education/Training Program; ADMIT Internal Medicine; ATTEND Internal Medicine
DX: R07.89 Other chest pain (principal); I10 Essential (primary) hypertension; E11.9 Type 2 diabetes mellitus without complications; E78.5 Hyperlipidemia, unspecified; J44.9 Chronic obstructive pulmonary disease, unspecified; Z79.82 Long term (current) use of aspirin; Z79.899 Other long term (current) drug therapy

== ENCOUNTER → 2024-02-01 | Outpatient (CLI) | payer OTHER ==
[~2024-02-01] MED LIST changes: +ASPIRIN81 M1 PO
== END | disposition home or self-care (01) ==
LOC: RESCLI 00:38
PROVIDERS: ATTEND Internal Medicine
DX: I10 Essential (primary) hypertension (principal); K21.9 Gastro-esophageal reflux disease without esophagitis; K76.0 Fatty (change of) liver, not elsewhere classified; Z91.09 Other allergy status, other than to drugs and biological substances; J44.9 Chronic obstructive pulmonary disease, unspecified; E55.9 Vitamin D deficiency, unspecified; E78.5 Hyperlipidemia, unspecified; Z98.890 Other specified postprocedural states; Z79.899 Other long term (current) drug therapy

== ENCOUNTER → 2024-03-14 | Outpatient (CLI) | payer OTHER | END | disposition home or self-care (01) | LOC: RESCLI 16:27 | PROVIDERS: ATTEND Internal Medicine | DX: K21.9 Gastro-esophageal reflux disease without esophagitis (principal); K76.0 Fatty (change of) liver, not elsewhere classified; I10 Essential (primary) hypertension; J45.20 Mild intermittent asthma, uncomplicated; E78.5 Hyperlipidemia, unspecified; R60.0 Localized edema; E55.9 Vitamin D deficiency, unspecified; Z91.09 Other allergy status, other than to drugs and biological substances; Z12.39 Encounter for other screening for malignant neoplasm of breast; Z88.8 Allergy status to other drugs, medicaments and biological substances; Z98.890 Other specified postprocedural states; Z82.49 Family history of ischemic heart disease and other diseases of the circulatory system; Z79.82 Long term (current) use of aspirin; Z79.899 Other long term (current) drug therapy ==

== ENCOUNTER → 2024-05-16 | Outpatient (CLI) | payer OTHER | END | disposition home or self-care (01) | LOC: RESCLI 01:30 | PROVIDERS: ATTEND Internal Medicine | DX: Z23 Encounter for immunization (principal); I10 Essential (primary) hypertension; K21.9 Gastro-esophageal reflux disease without esophagitis; J44.9 Chronic obstructive pulmonary disease, unspecified; E55.9 Vitamin D deficiency, unspecified; E66.9 Obesity, unspecified; E78.5 Hyperlipidemia, unspecified; K76.0 Fatty (change of) liver, not elsewhere classified; Z91.09 Other allergy status, other than to drugs and biological substances ==

== ENCOUNTER 2024-06-07 06:08 | Emergency (ER) | payer OTHER ==
[~2024-06-07] VITALS: Wt 108.9 kg
[2024-06-07] MEDS ORDERED: Ondansetron Hydrochloride 4 MG TAB SL ONE (06:25)
[2024-06-07] MEDS ORDERED: Ketorolac Tromethamine 30 MG/ML VIAL IM ONE (06:25)
[2024-06-07] MEDS ORDERED: TAMIFLU 75MG CA75 MG PO (07:24)
[2024-06-07] MEDS ORDERED: Albuterol Sulfate 2.5 MG/3 ML VIAL NEB ONE (07:25)
== END 2024-06-07 07:56 | disposition home or self-care (01) ==
LOC: ED 06:08
DX: J10.1 Influenza due to other identified influenza virus with other respiratory manifestations (principal); Z20.822 Contact with and (suspected) exposure to COVID-19; Z79.899 Other long term (current) drug therapy; Z79.82 Long term (current) use of aspirin; Z90.49 Acquired absence of other specified parts of digestive tract

== ENCOUNTER → 2024-09-05 | Outpatient (CLI) | payer OTHER ==
[2024-09-07 16:05] LABS: CREATININE, RANDOM URINE 37.8 mg/dL (Not Estab.)
[2024-09-09 10:04] LABS: METANEPH-CREAT RATIO 0.4 (0.0-1.0)
== END | disposition home or self-care (01) ==
LOC: LAB 00:49 → RESCLI 00:49
PROVIDERS: Student in an Organized Health Care Education/Training Program; ATTEND Internal Medicine
DX: I10 Essential (primary) hypertension (principal); R60.0 Localized edema; J44.9 Chronic obstructive pulmonary disease, unspecified; K21.9 Gastro-esophageal reflux disease without esophagitis; K76.0 Fatty (change of) liver, not elsewhere classified; E78.5 Hyperlipidemia, unspecified; E55.9 Vitamin D deficiency, unspecified; R73.03 Prediabetes; Z91.09 Other allergy status, other than to drugs and biological substances; Z79.899 Other long term (current) drug therapy; Z79.82 Long term (current) use of aspirin; Z98.890 Other specified postprocedural states; Z88.8 Allergy status to other drugs, medicaments and biological substances

== ENCOUNTER 2024-10-07 17:39 | Emergency (ER) | payer OTHER ==
[~2024-10-07] VITALS: Ht 160 cm; Wt 113.4 kg
[2024-10-07] MEDS ORDERED: traMADol Hydrochloride 50 MG TAB PO ONE (21:00)
[2024-10-07] MEDS ORDERED: MELOXICAM15 MG PO (22:02)
== END 2024-10-07 22:12 | disposition home or self-care (01) ==
LOC: ED 17:39
DX: S60.211A Contusion of right wrist, initial encounter (principal); X58.XXXA Exposure to other specified factors, initial encounter; Y93.89 Activity, other specified; Y92.89 Other specified places as the place of occurrence of the external cause; Y99.8 Other external cause status

== ENCOUNTER 2024-11-22 14:32 | Observation (INO) | payer OTHER ==
[~2024-11-22] VITALS: Ht 160 cm; Wt 106.2 kg
[~2024-11-22 14:32] MED LIST changes: +MELOXICAM15 MG PO
[2024-11-22 14:35] VITALS: BP 102/70
[2024-11-22 15:25] LABS: BASO % 0.3 % (0.0-1.0); EOS # 0.1 10*3/uL (0.0-0.4); EOS % 0.6 % (1.0-4.0); HEMATOCRIT 42.9 % (37.0-47.0); MEAN CELL VOLUME 79.7 fl (81.0-99.0); MEAN CORPUSCULAR HGB 25.5 pg (27.0-31.0); MEAN CORPUSCULAR HGB CONC 31.9 g/dl (33.0-37.0); MEAN PLATELET VOLUME 10.6 fl (9.6-12.3); MONO # 0.6 10*3/uL (0.1-1.0); MONO % 4.8 % (3.0-9.0); NEUT # 10.5 10*3/uL (2.3-7.9); NEUT % 81.3 % (47.0-73.0); PLATELET COUNT AUTOMATED 298 10*3/uL (130-400); RED BLOOD COUNT 5.38 10*6/uL (4.10-5.10); RED CELL DISTRI WIDTH 15.2 % (0-14.5); WHITE BLOOD COUNT 12.9 10*3/uL (4.8-10.8)
[2024-11-22 15:47] LABS: ALKALINE PHOSPHATASE 156 U/L (46-116); BUN 14 mg/dl (9-23); CHLORIDE 96 mmol/L (98-107); POTASSIUM 3.4 mmol/L (3.4-5.1); SGPT/ALT 41 U/L (5-49); TOTAL PROTEIN 7.6 gm/dL (6.0-8.0)
[2024-11-22 17:37] LABS: BILIRUBIN Negative (Negative); BLOOD 2+ (Negative); CLARITY Clear (Clear); COLOR Yellow (Yellow); GLUCOSE Negative (Negative); KETONE Negative (Negative); LEUKO ESTERASE Negative (Negative); NITRITE Negative (Negative); PH 6.5 (4.5-8.0); UROBILINOGEN 0.2 E.U./dl (0.0-1.0)
[2024-11-22 17:47] LABS: BACTERIA 1+; WBC 0-2 wbc/hpf (0-5)
[2024-11-22] MEDS ORDERED: HYDROmorphONE Hydrochloride 0.5 MG/0.5 ML SYRINGE IV ONE (18:15)
[2024-11-22] MEDS ORDERED: Ondansetron Hydrochloride 4 MG/2 ML VIAL IV ONE (18:15)
[2024-11-22] MEDS ORDERED: Acetaminophen/Hydrocodone 5 MG/325 MG TABLET PO PRN (18:40)
[2024-11-22] MEDS ORDERED: TEMAZEPAM 15 MG CAP PO PRN (18:40)
[2024-11-22] MEDS ORDERED: MORPHINE Sulfate 2 MG/ML SYR IV PRN (18:40)
[2024-11-22] MEDS ORDERED: ACETAMINOPHEN 325 MG TAB PO PRN (18:40)
[2024-11-22] MEDS ORDERED: Ondansetron Hydrochloride 4 MG/2 ML VIAL IV PRN (18:40)
[2024-11-22] MEDS ORDERED: Magnesium Hydroxide 30 ML UDC PO PRN (18:40)
[2024-11-22] MEDS ORDERED: Technetium Tc 99M Tetrofosmi 0.23 MG KIT IJ SCH (18:55)
[2024-11-22 19:32] VITALS: BP 94/58
[2024-11-22] MEDS ORDERED: ASPIRIN CHEWABL81 MG PO (20:56)
[2024-11-22] MEDS ORDERED: LISINOPRIL40 MG PO (20:56)
[2024-11-22] MEDS ORDERED: HYDR25T PO (20:56)
[2024-11-22] MEDS ORDERED: NORVASC5 MG PO (20:56)
[2024-11-22] MEDS ORDERED: LASIX20 MG PO (20:57)
[2024-11-22] MEDS ORDERED: OMEPRAZOLE40 MG PO (20:59)
[2024-11-22] MEDS ORDERED: VITAMIN E400 UNIT PO (20:59)
[2024-11-22] MEDS ORDERED: VITAMIN D350 MCG PO (21:00)
[2024-11-22] MEDS ORDERED: ZYRTEC10 M2 PO (21:01)
[2024-11-22] MEDS ORDERED: Scopolamine 1 PATCH PATCH T SCH (21:05)
[2024-11-22] MEDS ORDERED: Albuterol Sulfate 2.5 MG/3 ML VIAL NEB SCH (21:10)
[2024-11-22] MEDS ORDERED: BUDESONIDE 0.5 MG AMP NEB SCH (21:10)
[2024-11-23] VITALS (9 sets, daily range): BP systolic 88–104; BP diastolic 42–64
[2024-11-23] MEDS ORDERED: OMEPRAZOLE 20 MG CAP PO SCH (06:00)
[2024-11-23] MEDS ORDERED: Regadenoson 0.4 MG/5 ML SYR IV ONE (06:24)
[2024-11-23 06:48] LABS: BASO % 0.2 % (0.0-1.0); EOS # 0.1 10*3/uL (0.0-0.4); EOS % 0.5 % (1.0-4.0); HEMATOCRIT 41.6 % (37.0-47.0); MEAN CELL VOLUME 80.3 fl (81.0-99.0); MEAN CORPUSCULAR HGB 25.7 pg (27.0-31.0); MEAN PLATELET VOLUME 10.4 fl (9.6-12.3); MONO # 0.6 10*3/uL (0.1-1.0); MONO % 6.4 % (3.0-9.0); NEUT # 6.6 10*3/uL (2.3-7.9); NEUT % 67.6 % (47.0-73.0); PLATELET COUNT AUTOMATED 302 10*3/uL (130-400); RED BLOOD COUNT 5.18 10*6/uL (4.10-5.10); RED CELL DISTRI WIDTH 15.7 % (0-14.5); WHITE BLOOD COUNT 9.7 10*3/uL (4.8-10.8)
[2024-11-23 07:32] LABS: FREE T4 1.16 ng/dl (0.89-1.76); POTASSIUM 3.2 mmol/L (3.4-5.1)
[2024-11-23] MEDS ORDERED: POTASSIUM CHLORIDE 20 MEQ TAB PO ONE (09:30)
[2024-11-23] MEDS ORDERED: FUROSEMIDE 20 MG TAB PO SCH (10:00)
[2024-11-23] MEDS ORDERED: Fluticasone Propionate/Salmeterol 250/50 diskus INH SCH (10:00)
[2024-11-23] MEDS ORDERED: Montelukast Sodium 10 MG TAB PO SCH (10:00)
[2024-11-23] MEDS ORDERED: LISINOPRIL 40 MG TAB PO SCH (10:00)
[2024-11-23] MEDS ORDERED: Cetirizine Hydrochloride 10 MG TAB PO SCH (10:00)
[2024-11-23] MEDS ORDERED: Cholecalciferol 2,000 UNIT TABLET (50 MCG) PO SCH (10:00)
[2024-11-23] MEDS ORDERED: amLODIPine besylate 5 MG TAB PO SCH (10:00)
[2024-11-23] MEDS ORDERED: ASPIRIN, CHEWABLE 81 MG TAB PO SCH (10:00)
[2024-11-23] MEDS ORDERED: ATORVASTATIN CALCIUM 40 MG TABLET PO SCH (10:00)
[2024-11-23] MEDS ORDERED: hydroCHLOROthiazide 25 MG TAB PO SCH (10:00)
[2024-11-23] MEDS ORDERED: Enoxaparin Sodium 40 MG/0.4 ML SYR SC SCH (10:00)
[2024-11-23] MEDS ORDERED: ATORVASTATIN CA40 M1 PO (16:30)
[2024-11-23] MEDS ORDERED: SODIUM CHLORIDE 0.9% 500 ML IV ONE (21:30)
[2024-11-23] MEDS ORDERED: Dicyclomine Hydrochloride 20 MG TAB PO ONE (21:40)
[2024-11-23] MEDS ORDERED: SODIUM CHLORIDE 0.9% 1,000 ML IV ONE (21:40)
[2024-11-23 22:00] LABS: POTASSIUM 2.8 mmol/L (3.4-5.1); TOTAL PROTEIN 6.9 gm/dL (6.0-8.0)
[2024-11-23] MEDS ORDERED: BARIUM SULFATE 2% 450 ML BOT PO SCH (22:00)
[2024-11-23] MEDS ORDERED: POTASSIUM CHLORIDE IN WATER 100 ML IV SCH (23:00)
[2024-11-24] VITALS: BP 100/65
[2024-11-24] MEDS ORDERED: SODIUM CHLORIDE 0.9% 500 ML IV SCH (01:30)
[2024-11-24 07:14] LABS: BUN 23 mg/dl (9-23); CHLORIDE 102 mmol/L (98-107); POTASSIUM 3.3 mmol/L (3.4-5.1)
[2024-11-24] MEDS ORDERED: POTASSIUM CHLORIDE 20 MEQ TAB PO ONE (07:35)
[2024-11-24 08:00] VITALS: BP 93/52
[2024-11-24 12:00] VITALS: BP 98/44
[2024-11-24] MEDS ORDERED: POTASSIUM CHLO10 ME4 PO (12:00)
== END 2024-11-24 12:53 | disposition home or self-care (01) ==
LOC: ED 14:32 → EDHOLD 18:27 → 4E 11-23 15:39
PROVIDERS: Nurse Practitioner Family; Student in an Organized Health Care Education/Training Program; ADMIT Internal Medicine; ATTEND Internal Medicine
DX: R07.9 Chest pain, unspecified (principal); E43 Unspecified severe protein-calorie malnutrition; K85.90 Acute pancreatitis without necrosis or infection, unspecified; D72.818 Other decreased white blood cell count; R31.9 Hematuria, unspecified; R73.9 Hyperglycemia, unspecified; K21.9 Gastro-esophageal reflux disease without esophagitis; I10 Essential (primary) hypertension; K52.9 Noninfective gastroenteritis and colitis, unspecified; R73.03 Prediabetes; K76.0 Fatty (change of) liver, not elsewhere classified; K86.1 Other chronic pancreatitis; I95.9 Hypotension, unspecified; N17.9 Acute kidney failure, unspecified; Z68.41 Body mass index [BMI] 40.0-44.9, adult; Z79.899 Other long term (current) drug therapy

== ENCOUNTER → 2024-11-30 | Outpatient (CLI) | payer OTHER ==
[~2024-11-30] MED LIST changes: +ASPIRIN CHEWABL81 MG PO; +ATORVASTATIN CA40 M1 PO; +HYDR25T PO; +LASIX20 MG PO; +LISINOPRIL40 MG PO; +NORVASC5 MG PO; +OMEPRAZOLE40 MG PO; +POTASSIUM CHLO10 ME4 PO; +VITAMIN D350 MCG PO; +VITAMIN E400 UNIT PO; +ZYRTEC10 M2 PO
== END | disposition home or self-care (01) ==
LOC: RESCLI 01:34
PROVIDERS: ATTEND Family Medicine
DX: E07.9 Disorder of thyroid, unspecified (principal); E78.5 Hyperlipidemia, unspecified; J44.9 Chronic obstructive pulmonary disease, unspecified; G90.9 Disorder of the autonomic nervous system, unspecified; K21.9 Gastro-esophageal reflux disease without esophagitis; K76.0 Fatty (change of) liver, not elsewhere classified; Z91.09 Other allergy status, other than to drugs and biological substances

== ENCOUNTER → 2025-01-06 | Outpatient (CLI) | payer OTHER | END | disposition home or self-care (01) | LOC: RESCLI 02:13 | PROVIDERS: ATTEND Internal Medicine | DX: K76.0 Fatty (change of) liver, not elsewhere classified (principal); R19.7 Diarrhea, unspecified; R53.83 Other fatigue; J45.20 Mild intermittent asthma, uncomplicated; E78.5 Hyperlipidemia, unspecified; E55.9 Vitamin D deficiency, unspecified; K21.9 Gastro-esophageal reflux disease without esophagitis; R60.0 Localized edema; Z91.09 Other allergy status, other than to drugs and biological substances ==

== ENCOUNTER → 2025-01-17 | Outpatient (CLI) | payer OTHER | END | disposition home or self-care (01) | LOC: US 02:30 | PROVIDERS: ATTEND Internal Medicine | DX: K76.0 Fatty (change of) liver, not elsewhere classified (principal); Z90.49 Acquired absence of other specified parts of digestive tract ==

== ENCOUNTER 2025-05-30 16:18 | Emergency (ER) | payer SELFPAY ==
[2025-05-30] MEDS ORDERED: Acetaminophen/Hydrocodone 5 MG/325 MG TABLET PO ONE (17:35)
[2025-05-30] MEDS ORDERED: NAPROSYN500 MG PO (18:44)
== END 2025-05-30 19:01 | disposition home or self-care (01) ==
LOC: ED 16:18
DX: S93.402A Sprain of unspecified ligament of left ankle, initial encounter (principal); J45.909 Unspecified asthma, uncomplicated; K21.9 Gastro-esophageal reflux disease without esophagitis; I10 Essential (primary) hypertension; J44.9 Chronic obstructive pulmonary disease, unspecified; Z68.41 Body mass index [BMI] 40.0-44.9, adult; Z90.49 Acquired absence of other specified parts of digestive tract; X58.XXXA Exposure to other specified factors, initial encounter; Y93.H1 Activity, digging, shoveling and raking; Y92.89 Other specified places as the place of occurrence of the external cause; Y99.8 Other external cause status